=== PATIENT | female | born 1955 | race Two or more races ===

== ENCOUNTER 2022-07-20 13:46 | Inpatient (IN) | payer OTHER ==
[~2022-07-20] VITALS: Ht 157.5 cm; Wt 118.0 kg
[2022-07-20] MEDS ORDERED: LABETALOL HCL 5 MG/ML 4ML SYRINGE IV ONE (14:15)
[2022-07-20] MEDS: NITROGLYCERIN 0.4 MG SL TAB SL ONE ×2 (14:40→20:18)
[2022-07-20 14:49] LABS: Basophils # (auto) 0.1 10 ^3/uL (0-0.2); Basophils % (auto) 0.6 % (0.0-2.0); Eosinophils # (auto) 0.2 10 ^3/uL (0-0.8); Eosinophils % (auto) 1.9 % (0.0-7.0); Hematocrit 43.7 % (36.0-46.0); Hemoglobin 14.6 g/dL (12.2-16.2); Lymphocytes # (auto) 0.9 10 ^3/uL (0.4-5.4); Lymphocytes % (auto) 10.7 % (10.0-50.0); Mean Corpuscular Hemoglobin 28.4 pg (28.0-32.0); Mean Corpuscular Hgb Conc. 33.5 g/dL (32.0-36.0); Mean Corpuscular Volume 84.9 fL (80.0-100.0); Monocytes # (auto) 0.6 10 ^3/uL (0-1.3); Monocytes % (auto) 7.3 % (0.0-12.0); Neutrophils # (auto) 6.9 10 ^3/uL (1.6-8.6); Neutrophils % (auto) 79.5 % (37.0-80.0); Nucleated Red Blood Cells % 0.1 %; Red Blood Cells 5.14 10^6/uL (4.0-5.20); Red Cell Distribution Width 14.5 % (11.8-14.3); White Blood Cell 8.7 10^3/uL (4.4-10.8)
[2022-07-20 15:10] LABS: Alanine Aminotransferase 7 U/L (13-56); Albumin 2.9 g/dL (3.4-5.0); Anion Gap 8 (5-15); Aspartate Aminotransferase 15 U/L (15-37); BUN/Creatinine Ratio 10.5 (10.0-20.0); Blood Urea Nitrogen 8 mg/dL (7-18); Calcium 8.8 mg/dL (8.5-10.1); Carbon Dioxide 22 mmol/L (21-32); Chloride 107 mmol/L (98-107); GFR African American 97 mL/min; GFR Non-African American 80 mL/min; Glucose 97 mg/dL (74-106); Magnesium 2.5 mg/dL (1.6-2.6); Potassium 4.1 mmol/L (3.5-5.1); Sodium 137 mmol/L (136-145)
[2022-07-20 15:12] LABS: Alkaline Phosphatase 113 U/L (45-117); Bilirubin, Total 0.6 mg/dL (0.2-1.0); Total Protein 7.2 g/dL (6.4-8.2)
[2022-07-20] MEDS ORDERED: MORPHINE SULFATE INJ 2 MG/ml SYRG IV PRN (19:15)
[2022-07-20] MEDS ORDERED: NITROGLYCERIN 0.4 MG SL TAB SL PRN (19:15)
[2022-07-20] MEDS ORDERED: DEXTROSE (50%) 50ML SYRG IV PRN (19:45)
[2022-07-20] MEDS: InsuLIN REG 1unit/0.01ml Soln (100units/ml) SC SCH (22:37)
[2022-07-20] MEDS: ACCU-CHEK COMFORT CURVE STRIP VI SCH (22:37)
[2022-07-20] MEDS: ATORVASTATIN 20 MG TAB PO SCH (22:37)
[2022-07-20 23:13] LABS: Urine Bacteria NONE SEEN /hpf (None Seen); Urine Blood Negative /uL (Negative); Urine Mucus MANY (None Seen); Urine Specific Gravity 1.035 (1.001-1.035); Urine WBC 5 /hpf (0 - 5)
[2022-07-20 23:35] LABS: Amphetamine Screen, Urine NEGATIVE (NEGATIVE); Barbiturate Scree,Urine NEGATIVE (NEGATIVE); Benzodiazephine Screen, Urine NEGATIVE (NEGATIVE); Cocaine Screen, Urine NEGATIVE (NEGATIVE); Opiate Scree,Urine NEGATIVE (NEGATIVE); Phencyclidine Screen, Urine NEGATIVE (NEGATIVE)
[2022-07-20 23:42] LABS: Cannabinoid Screen, Urine POSITIVE (NEGATIVE)
[2022-07-20] MEDS: ONDANSETRON HCL 4 MG/2 ML VIAL IV PRN (23:57)
[2022-07-20] MEDS: ACETAMINOPHEN 325 MG TAB PO PRN (23:58)
[2022-07-21 05:25] LABS: Basophils # (auto) 0.1 10 ^3/uL (0-0.2); Basophils % (auto) 0.7 % (0.0-2.0); Eosinophils # (auto) 0.1 10 ^3/uL (0-0.8); Eosinophils % (auto) 1.1 % (0.0-7.0); Hematocrit 39.9 % (36.0-46.0); Hemoglobin 13.4 g/dL (12.2-16.2); Lymphocytes # (auto) 1.4 10 ^3/uL (0.4-5.4); Lymphocytes % (auto) 14.2 % (10.0-50.0); Mean Corpuscular Hemoglobin 28.4 pg (28.0-32.0); Mean Corpuscular Hgb Conc. 33.5 g/dL (32.0-36.0); Mean Corpuscular Volume 84.8 fL (80.0-100.0); Monocytes # (auto) 0.9 10 ^3/uL (0-1.3); Monocytes % (auto) 9.6 % (0.0-12.0); Neutrophils # (auto) 7.2 10 ^3/uL (1.6-8.6); Neutrophils % (auto) 74.4 % (37.0-80.0); Nucleated Red Blood Cells % 0.1 %; Red Blood Cells 4.71 10^6/uL (4.0-5.20); White Blood Cell 9.6 10^3/uL (4.4-10.8)
[2022-07-21 05:29] LABS: Albumin 2.8 g/dL (3.4-5.0); Calcium 8.9 mg/dL (8.5-10.1); Potassium 3.6 mmol/L (3.5-5.1)
[2022-07-21 05:34] LABS: BUN/Creatinine Ratio 12.9 (10.0-20.0); Bilirubin, Total 0.6 mg/dL (0.2-1.0); Total Protein 7.2 g/dL (6.4-8.2)
[2022-07-21] MEDS: InsuLIN REG 1unit/0.01ml Soln (100units/ml) SC SCH ×4 (07:00→21:43)
[2022-07-21] MEDS: ACCU-CHEK COMFORT CURVE STRIP VI SCH ×4 (07:00→21:39)
[2022-07-21] MEDS: ONDANSETRON HCL 4 MG/2 ML VIAL IV PRN ×3 (09:22→20:16)
[2022-07-21] MEDS ORDERED: PANTOPRAZOLE 40 MG TAB PO SCH (10:00)
[2022-07-21] MEDS ORDERED: ASPirin 81 mg TAB PO SCH (10:00)
[2022-07-21] MEDS: ERGOCALCIFEROL 50,000 UNIT(1.25MG) CAP PO SCH ×2 (10:45→11:47)
[2022-07-21 11:05] LABS: Free T4 (Free Thyroxine) 0.98 ng/dL (0.89-1.76)
[2022-07-21] MEDS ORDERED: IOHEXOL 300 MG/ML 100ML BOTTLE IJ ONE (11:21)
[2022-07-21] MEDS ORDERED: CYANOCOBALAMIN (B-12) 1000 MCG/1 ML VIAL IM ONE (11:30)
[2022-07-21] MEDS: ACETAMINOPHEN 325 MG TAB PO PRN (14:52)
[2022-07-21 16:39] VITALS: BP 185/114
[2022-07-21 17:01] VITALS: BP 185/114
[2022-07-21] MEDS: SUCRALFATE 1 GM TAB PO SCH ×2 (17:09→21:39)
[2022-07-21] MEDS: LABETALOL HCL 5 MG/ML 4ML SYRINGE IV PRN ×2 (17:10→23:18)
[2022-07-21 17:28] LABS: INR 1.04 (0.9-1.15)
[2022-07-21] MEDS: PANTOPRAZOLE 40 MG TAB PO SCH (21:39)
[2022-07-21] MEDS: ATORVASTATIN 20 MG TAB PO SCH (21:42)
[2022-07-21 22:00] VITALS: BP 159/83
[2022-07-22] MEDS ORDERED: LORazepam 2MG/ML-1ML VIAL IV PRN
[2022-07-22 05:00] VITALS: BP 135/59
[2022-07-22] MEDS: ONDANSETRON HCL 4 MG/2 ML VIAL IV PRN ×2 (05:29→18:30)
[2022-07-22 06:29] LABS: BUN/Creatinine Ratio 12.9 (10.0-20.0); Calcium 8.9 mg/dL (8.5-10.1); Potassium 3.6 mmol/L (3.5-5.1)
[2022-07-22] MEDS: SUCRALFATE 1 GM TAB PO SCH ×3 (06:46→16:32)
[2022-07-22] MEDS: ACCU-CHEK COMFORT CURVE STRIP VI SCH ×3 (06:46→16:31)
[2022-07-22] MEDS ORDERED: LEVOTHYROXINE SODIUM 25 MCG TAB PO SCH (07:00)
[2022-07-22] MEDS: InsuLIN REG 1unit/0.01ml Soln (100units/ml) SC SCH ×3 (07:00→16:31)
[2022-07-22] MEDS ORDERED: LIDOCAINE 2%HCL (LOCAL ANESTH.) INJ 10ml MDV ONE (07:32)
[2022-07-22] MEDS ORDERED: GELATIN 1 SPONGE SIZE 50 TOP ONE (07:33)
[2022-07-22 09:00] VITALS: BP 168/76
[2022-07-22] MEDS ORDERED: LISINOPRIL 10 MG TAB PO SCH (10:00)
[2022-07-22] MEDS ORDERED: LISINOPRIL 5 MG TAB PO SCH (10:00)
[2022-07-22] MEDS ORDERED: CYANOCOBALAMIN 500 MCG TAB PO SCH ×2 (10:00)
[2022-07-22] MEDS: PANTOPRAZOLE 40 MG TAB PO SCH (10:00)
[2022-07-22 10:30] VITALS: BP 148/88
[2022-07-22] MEDS ORDERED: NALOXONE HCL 0.4 MG/ML VIAL ONE (12:54)
[2022-07-22] MEDS ORDERED: fentaNYL CITRATE 100 MCG/2 ML VL ONE (12:55)
[2022-07-22] MEDS ORDERED: FLUMAZENIL 0.1 MG/ML INJ 10ML MDV IV ONE (12:55)
[2022-07-22 13:00] VITALS: BP_SYST 140; BP_DIAS 69; BP_DIAS 72
[2022-07-22] MEDS: diphenhdrAMINE HCL 50 MG/1 ML VL ONE ×2 (14:43→14:46)
[2022-07-22] MEDS: MIDAZOLAM HCL 2MG/2ML 2ml VIAL (1mg/ml) ONE ×2 (14:43→14:48)
[2022-07-22] MEDS ORDERED: ERGO1CAP23 PO (15:57)
[2022-07-22] MEDS ORDERED: LEV25T PO (15:57)
[2022-07-22] MEDS ORDERED: LISI-275 PO (15:57)
[2022-07-22] MEDS ORDERED: PANT40T PO (15:57)
[2022-07-22] MEDS ORDERED: SUCR1TAB PO (15:57)
[2022-07-22] MEDS ORDERED: CYAN500T3 PO (15:57)
[2022-07-22 16:56] VITALS: BP 133/73
[2022-07-22 18:23] VITALS: BP 148/88
[2022-07-23] MEDS ORDERED: PANTOPRAZOLE 40 MG TAB PO SCH (10:00)
== END 2022-07-22 19:05 | disposition home or self-care (01) | DRG 392 ==
LOC: ER 13:46 → TELE 19:31 → TELE-CENTR 07-21 16:34 → CENTRAL 07-21 16:47
PROVIDERS: ADMIT Nurse Practitioner Family; ATTEND Internal Medicine
PROC: 0DB68ZX Excision of Stomach, Via Natural or Artificial Opening Endoscopic, Diagnostic (ICD-10-PCS; 2022-07-22)
PROC: 0DB48ZX Excision of Esophagogastric Junction, Via Natural or Artificial Opening Endoscopic, Diagnostic (ICD-10-PCS; 2022-07-22)
PROC: 0DB98ZX Excision of Duodenum, Via Natural or Artificial Opening Endoscopic, Diagnostic (ICD-10-PCS; principal; 2022-07-22 14:10)
DX: K29.70 Gastritis, unspecified, without bleeding (principal); I16.1 Hypertensive emergency; Z68.42 Body mass index [BMI] 45.0-49.9, adult; E55.9 Vitamin D deficiency, unspecified; E03.9 Hypothyroidism, unspecified; E66.01 Morbid (severe) obesity due to excess calories; K22.70 Barrett's esophagus without dysplasia; K29.90 Gastroduodenitis, unspecified, without bleeding; K44.9 Diaphragmatic hernia without obstruction or gangrene; N28.89 Other specified disorders of kidney and ureter; Z90.710 Acquired absence of both cervix and uterus; Z90.49 Acquired absence of other specified parts of digestive tract; Z87.891 Personal history of nicotine dependence; Z82.49 Family history of ischemic heart disease and other diseases of the circulatory system; Z80.41 Family history of malignant neoplasm of ovary; Z80.7 Family history of other malignant neoplasms of lymphoid, hematopoietic and related tissues; Z90.5 Acquired absence of kidney
CPT/HCPCS: 36415; 43239; 70450; 70551; 71045; 74177; 80048; 80053; 80061; 80307; 81001; 82306; 82607; 82962; 83036; 83090; 83605; 83735; 84439; 84443; 84484; 85025; 85610; 85730; 86850; 86900; 86901; 93306; 93886; 99291; G0378; J2001; J2250; J2405; J3490

== ENCOUNTER → 2022-07-26 | Outpatient (CLI) | payer OTHER ==
[~2022-07-26] MED LIST: CYAN500T3 PO; ERGO1CAP23 PO; LEV25T PO; LISI-275 PO; PANT40T PO; SUCR1TAB PO
[2022-07-26 14:02] LABS: Calcium 8.6 mg/dL (8.5-10.1); Potassium 3.5 mmol/L (3.5-5.1)
== END | disposition home or self-care (01) ==
LOC: LAB 13:00
PROVIDERS: ATTEND Internal Medicine
DX: E03.9 Hypothyroidism, unspecified (principal)
CPT/HCPCS: 36415; 80048; 84436; 84443

== ENCOUNTER 2022-10-29 12:46 | Inpatient (IN) | payer OTHER ==
[~2022-10-29] VITALS: Ht 154.9 cm; Wt 109.6 kg
[2022-10-29 14:33] LABS: Alanine Aminotransferase 19 U/L (7-40); Alkaline Phosphatase 102 U/L (46-116); Anion Gap 8.4 (5-15); Aspartate Aminotransferase 43 U/L (13-40); BUN/Creatinine Ratio 14.2 (10.0-20.0); Bilirubin, Total 0.5 mg/dL (0.2-1.0); Blood Urea Nitrogen 19 mg/dL (9-23); Calcium 8.6 mg/dL (8.5-10.1); Carbon Dioxide 28.6 mmol/L (20-30); Chloride 95 mmol/L (98-107); Glucose 109 mg/dL (74-106); Potassium 4.8 mmol/L (3.5-5.1); Sodium 132 mmol/L (136-145); Total Protein 5.5 g/dL (5.7-8.2)
[2022-10-29 15:35] LABS: Basophils # (auto) 0.1 10 ^3/uL (0-0.2); Basophils % (auto) 1.1 % (0.0-2.0); Eosinophils # (auto) 0 10 ^3/uL (0-0.8); Eosinophils % (auto) 0.2 % (0.0-7.0); Hematocrit 39.7 % (36.0-46.0); Hemoglobin 12.7 g/dL (12.2-16.2); Lymphocytes # (auto) 0.9 10 ^3/uL (0.4-5.4); Lymphocytes % (auto) 7.3 % (10.0-50.0); Mean Corpuscular Hemoglobin 27.7 pg (28.0-32.0); Mean Corpuscular Volume 86.5 fL (80.0-100.0); Neutrophils # (auto) 9.9 10 ^3/uL (1.6-8.6); Neutrophils % (auto) 83.4 % (37.0-80.0); Nucleated Red Blood Cells % 0.2 %; Red Blood Cells 4.59 10^6/uL (4.0-5.20); Red Cell Distribution Width 17.2 % (11.8-14.3); White Blood Cell 11.9 10^3/uL (4.4-10.8)
[2022-10-29 16:07] VITALS: PULSE 100; RESP 18; O2SAT 97
[2022-10-29] MEDS ORDERED: SODIUM CHLORIDE 0.9% 500 ML IVB ONE (16:45)
[2022-10-29] MEDS ORDERED: ONDANSETRON HCL 4 MG/2 ML VIAL IV ONE (16:45)
[2022-10-29] MEDS ORDERED: SODIUM CHLORIDE 0.9% 1,000 ML IV ONE (16:45)
[2022-10-29 17:06] LABS: Magnesium 2.3 mg/dL (1.6-2.6)
[2022-10-29] MEDS ORDERED: SPIRONOLACTONE 25 MG TAB PO ONE (18:00)
[2022-10-29] MEDS ORDERED: FUROSEMIDE 20 MG/2 ML VIAL IV ONE (18:00)
[2022-10-29] MEDS ORDERED: LEVOTHYROXINE SODIUM 25 MCG TAB PO ONE (18:45)
[2022-10-29 19:35] VITALS: PULSE 87; RESP 18; O2SAT 100
[2022-10-29] MEDS ORDERED: ACETAMINOPHEN 325 MG TAB PO PRN (20:15)
[2022-10-29] MEDS ORDERED: cefTRIAXone 1GM/50ML D5W 50 ML IV ONE (20:15)
[2022-10-29] MEDS ORDERED: DOCUSATE SOD 100 MG CAP PO PRN (20:15)
[2022-10-29] MEDS ORDERED: MORPHINE SULFATE INJ 2 MG/ml SYRG IV PRN (21:30)
[2022-10-29] MEDS ORDERED: NITROGLYCERIN 0.4 MG SL TAB SL PRN (21:30)
[2022-10-29] MEDS: CARVEDILOL 3.125 MG TAB PO SCH (22:00)
[2022-10-29] MEDS: SODIUM CHLOR 0.9% PF (SALINE LOCK) 10ML VIAL/SYR IV SCH (22:02)
[2022-10-29] MEDS: FAMOTIDINE (10MG/ML) 2ML VL IV SCH (22:08)
[2022-10-30 05:34] LABS: Alanine Aminotransferase 19 U/L (7-40); Albumin 2.7 g/dL (3.2-4.8); Alkaline Phosphatase 96 U/L (46-116); Anion Gap 3.9 (5-15); Aspartate Aminotransferase 47 U/L (13-40); BUN/Creatinine Ratio 14.4 (10.0-20.0); Bilirubin, Total 0.7 mg/dL (0.2-1.0); Blood Urea Nitrogen 20 mg/dL (9-23); Calcium 8.2 mg/dL (8.7-10.4); Carbon Dioxide 33.1 mmol/L (20-30); Chloride 98 mmol/L (98-107); Glucose 76 mg/dL (74-106); Potassium 4.3 mmol/L (3.5-5.1); Sodium 135 mmol/L (136-145)
[2022-10-30 05:35] LABS: Basophils # (auto) 0.1 10 ^3/uL (0-0.2); Basophils % (auto) 0.7 % (0.0-2.0); Eosinophils # (auto) 0.1 10 ^3/uL (0-0.8); Eosinophils % (auto) 0.9 % (0.0-7.0); Hematocrit 34.8 % (36.0-46.0); Hemoglobin 11.4 g/dL (12.2-16.2); Lymphocytes # (auto) 0.9 10 ^3/uL (0.4-5.4); Mean Corpuscular Hgb Conc. 32.8 g/dL (32.0-36.0); Mean Corpuscular Volume 85.2 fL (80.0-100.0); Monocytes # (auto) 1.2 10 ^3/uL (0-1.3); Monocytes % (auto) 9.5 % (0.0-12.0); Neutrophils # (auto) 10.1 10 ^3/uL (1.6-8.6); Neutrophils % (auto) 81.9 % (37.0-80.0); Nucleated Red Blood Cells % 0.4 %; Red Blood Cells 4.09 10^6/uL (4.0-5.20); White Blood Cell 12.4 10^3/uL (4.4-10.8)
[2022-10-30 05:55] LABS: Urine WBC None Seen /hpf (0 - 5)
[2022-10-30 06:21] LABS: Urine Bacteria NONE SEEN /hpf (None Seen); Urine Blood Negative /uL (Negative); Urine Clarity Clear (Clear); Urine Color Colorless (Yellow); Urine Protein, UAD Negative (Negative); Urine Specific Gravity 1.031 (1.001-1.035); Urine Urobilinogen Normal (Negative)
[2022-10-30] MEDS: SODIUM CHLOR 0.9% PF (SALINE LOCK) 10ML VIAL/SYR IV SCH ×3 (06:24→22:11)
[2022-10-30] MEDS: LEVOTHYROXINE SODIUM 25 MCG TAB PO SCH (06:56)
[2022-10-30] MEDS ORDERED: FUR20T PO (07:19)
[2022-10-30] MEDS ORDERED: TRAM50TA2 PO (07:19)
[2022-10-30 07:29] VITALS: PULSE 82; RESP 18
[2022-10-30 08:00] VITALS: BP 117/56; PULSE 86; PULSE 89; RESP 20; RESP 28; TEMP 98.7; O2SAT 86; O2SAT 98
[2022-10-30 08:07] LABS: Triglycerides 80 mg/dL (< 150)
[2022-10-30 08:08] LABS: LDL Cholesterol 55 mg/dL (< 100)
[2022-10-30 08:09] LABS: Cholesterol 105 mg/dL (< 200); HDL Cholesterol 30 mg/dL (40-59)
[2022-10-30] MEDS: cefTRIAXone 1GM/50ML D5W 50 ML IV SCH (09:00)
[2022-10-30] MEDS ORDERED: FUROSEMIDE 40 MG/4 ML VIAL IV SCH (10:00)
[2022-10-30] MEDS: FAMOTIDINE (10MG/ML) 2ML VL IV SCH ×2 (10:45→21:33)
[2022-10-30] MEDS: ASPirin 81 mg TAB PO SCH (10:45)
[2022-10-30] MEDS: CARVEDILOL 3.125 MG TAB PO SCH ×2 (10:45→21:33)
[2022-10-30] MEDS ORDERED: SODIUM CHLORIDE 0.9% 1,000 ML IV SCH (12:15)
[2022-10-30] MEDS ORDERED: ASPirin 81 mg TAB PO ONE (15:15)
[2022-10-30] MEDS ORDERED: CLOPIDOGREL 300 MG TAB PO ONE (15:15)
[2022-10-30] MEDS: SODIUM CHLORIDE 0.9% 1,000 ML IV SCH ×2 (15:15→18:37)
[2022-10-30 16:48] VITALS: BP 122/72; PULSE 86; RESP 19; TEMP 98.5; O2SAT 92
[2022-10-30 20:00] VITALS: PULSE 78; RESP 16
[2022-10-30] MEDS: ATORVASTATIN 20 MG TAB PO SCH (21:33)
[2022-10-30 22:00] VITALS: BP 123/70; PULSE 81; RESP 18; TEMP 97.6; O2SAT 93
[2022-10-31] VITALS (7 sets, daily range): BP systolic 125–159; BP diastolic 68–79; PULSE 63–88; RESP 16–18; TEMP 97.3–98; O2SAT 96–100
[2022-10-31] MEDS: SODIUM CHLORIDE 0.9% 1,000 ML IV SCH ×2 (01:35→22:08)
[2022-10-31] MEDS: SODIUM CHLOR 0.9% PF (SALINE LOCK) 10ML VIAL/SYR IV SCH ×3 (06:00→21:59)
[2022-10-31] MEDS: LEVOTHYROXINE SODIUM 25 MCG TAB PO SCH (06:40)
[2022-10-31] MEDS: cefTRIAXone 1GM/50ML D5W 50 ML IV SCH (10:18)
[2022-10-31] MEDS: ASPirin 81 mg TAB PO SCH (10:18)
[2022-10-31] MEDS: FAMOTIDINE (10MG/ML) 2ML VL IV SCH ×2 (10:18→21:58)
[2022-10-31] MEDS: CARVEDILOL 3.125 MG TAB PO SCH ×2 (10:18→21:59)
[2022-10-31] MEDS: CLOPIDOGREL BISULFATE 75 MG TAB PO SCH (10:21)
[2022-10-31 11:06] LABS: Hepatitis B Surface Antibody Negative (Negative)
[2022-10-31 11:08] LABS: Free T3 1.85 pg/mL (2.3-4.2); Free T4 (Free Thyroxine) 0.83 ng/dL (0.89-1.76)
[2022-10-31 11:17] LABS: Hepatitis B Surface Antigen Negative (Negative)
[2022-10-31 11:40] LABS: Hepatitis C Antibody Negative (Negative)
[2022-10-31 11:45] LABS: Hepatitis A Total Antibody Negative (Negative)
[2022-10-31] MEDS: HYDROcodone-ACET 5/325MG TAB PO PRN ×2 (14:17→21:58)
[2022-10-31 18:42] LABS: Basophils # (auto) 0.1 10 ^3/uL (0-0.2); Basophils % (auto) 0.6 % (0.0-2.0); Eosinophils # (auto) 0.3 10 ^3/uL (0-0.8); Hematocrit 35.1 % (36.0-46.0); Hemoglobin 11.2 g/dL (12.2-16.2); Lymphocytes # (auto) 0.5 10 ^3/uL (0.4-5.4); Lymphocytes % (auto) 4.3 % (10.0-50.0); Mean Corpuscular Hemoglobin 27.7 pg (28.0-32.0); Mean Corpuscular Volume 86.6 fL (80.0-100.0); Monocytes # (auto) 0.9 10 ^3/uL (0-1.3); Monocytes % (auto) 7.3 % (0.0-12.0); Neutrophils # (auto) 10.6 10 ^3/uL (1.6-8.6); Neutrophils % (auto) 85.8 % (37.0-80.0); Nucleated Red Blood Cells % 0.1 %; Red Blood Cells 4.06 10^6/uL (4.0-5.20); Red Cell Distribution Width 17.4 % (11.8-14.3); White Blood Cell 12.4 10^3/uL (4.4-10.8)
[2022-10-31 18:49] LABS: Chloride 101 mmol/L (98-107); Potassium 4.3 mmol/L (3.5-5.1); Sodium 139 mmol/L (136-145)
[2022-10-31 18:50] LABS: Anion Gap 6.3 (5-15); Calcium 7.7 mg/dL (8.5-10.1); Carbon Dioxide 31.7 mmol/L (20-30)
[2022-10-31 18:55] LABS: BUN/Creatinine Ratio 17.8 (10.0-20.0); Blood Urea Nitrogen 18 mg/dL (9-23); Glucose 73 mg/dL (74-106)
[2022-10-31 18:56] LABS: Magnesium 1.9 mg/dL (1.6-2.6)
[2022-10-31] MEDS: ATORVASTATIN 20 MG TAB PO SCH (21:58)
[2022-11-01] VITALS (10 sets, daily range): BP systolic 113–141; BP diastolic 53–71; PULSE 72–84; RESP 14–23; TEMP 98.3–98.7; O2SAT 90–100
[2022-11-01] MEDS: LEVOTHYROXINE SODIUM 25 MCG TAB PO SCH (06:16)
[2022-11-01] MEDS: SODIUM CHLOR 0.9% PF (SALINE LOCK) 10ML VIAL/SYR IV SCH ×3 (06:18→22:49)
[2022-11-01] MEDS ORDERED: FUROSEMIDE 40 MG/4 ML VIAL IV ONE (07:30)
[2022-11-01] MEDS: cefTRIAXone 1GM/50ML D5W 50 ML IV SCH (09:00)
[2022-11-01] MEDS ORDERED: LISINOPRIL 5 MG TAB PO SCH (10:00)
[2022-11-01] MEDS: FAMOTIDINE (10MG/ML) 2ML VL IV SCH ×2 (10:00→22:52)
[2022-11-01] MEDS: CLOPIDOGREL BISULFATE 75 MG TAB PO SCH (10:00)
[2022-11-01] MEDS: ASPirin 81 mg TAB PO SCH (10:00)
[2022-11-01] MEDS: METOPROLOL TARTRATE 25 MG TAB PO SCH ×2 (10:00→22:50)
[2022-11-01] MEDS ORDERED: LIDOCAINE 2%HCL (LOCAL ANESTH.) INJ 20ML MDV ONE (10:16)
[2022-11-01] MEDS ORDERED: IODIXANOL 320MG/ML 100ML BTL IV ONE (10:16)
[2022-11-01] MEDS ORDERED: ANGIOMAX 250 MG VIAL IV ONE (10:32)
[2022-11-01] MEDS ORDERED: MIDAZOLAM HCL 2MG/2ML 2ml VIAL (1mg/ml) ONE (10:32)
[2022-11-01] MEDS ORDERED: SODIUM CHL 0.9% 0 ML ONE (10:32)
[2022-11-01] MEDS ORDERED: HEPARIN SODIUM (PORCINE) 5000 UNITS/ML 1ML VIAL ONE (10:32)
[2022-11-01] MEDS ORDERED: fentaNYL CITRATE 100 MCG/2 ML VL ONE (10:32)
[2022-11-01] MEDS ORDERED: VERAPAMIL 2.5MG/ML INJ 2ML VIAL IV ONE (10:33)
[2022-11-01 15:13] LABS: INR 1.15 (0.9-1.15); Partial Thromboplastin Time 39.2 SEC (24.5-34.5)
[2022-11-01] MEDS: SODIUM CHLORIDE 0.9% 1,000 ML IV SCH (17:15)
[2022-11-01] MEDS: FUROSEMIDE 40 MG/4 ML VIAL IV SCH (18:07)
[2022-11-01] MEDS: ATORVASTATIN 20 MG TAB PO SCH (22:49)
[2022-11-01] MEDS: HYDROcodone-ACET 5/325MG TAB PO PRN (22:50)
[2022-11-02] VITALS (7 sets, daily range): BP systolic 94–130; BP diastolic 48–61; PULSE 70–86; RESP 16–18; TEMP 36.8; O2SAT 94–100
[2022-11-02] MEDS: LEVOTHYROXINE SODIUM 100 MCG TAB PO SCH (06:31)
[2022-11-02] MEDS: SODIUM CHLOR 0.9% PF (SALINE LOCK) 10ML VIAL/SYR IV SCH ×3 (06:31→22:00)
[2022-11-02] MEDS: FUROSEMIDE 40 MG/4 ML VIAL IV SCH ×2 (06:33→17:52)
[2022-11-02 06:38] LABS: Basophils # (auto) 0.1 10 ^3/uL (0-0.2); Basophils % (auto) 0.7 % (0.0-2.0); Eosinophils # (auto) 1.1 10 ^3/uL (0-0.8); Eosinophils % (auto) 7.7 % (0.0-7.0); Hemoglobin 12.5 g/dL (12.2-16.2); Lymphocytes # (auto) 0.9 10 ^3/uL (0.4-5.4); Lymphocytes % (auto) 6.6 % (10.0-50.0); Mean Corpuscular Hemoglobin 28.1 pg (28.0-32.0); Mean Corpuscular Volume 87.8 fL (80.0-100.0); Monocytes # (auto) 1.9 10 ^3/uL (0-1.3); Monocytes % (auto) 13.7 % (0.0-12.0); Neutrophils % (auto) 71.3 % (37.0-80.0); Nucleated Red Blood Cells % 0.1 %; Red Blood Cells 4.44 10^6/uL (4.0-5.20); Red Cell Distribution Width 17.7 % (11.8-14.3)
[2022-11-02 06:58] LABS: Alanine Aminotransferase 13 U/L (7-40); Albumin 2.7 g/dL (3.2-4.8); Alkaline Phosphatase 100 U/L (46-116); Anion Gap 7.8 (5-15); Aspartate Aminotransferase 28 U/L (13-40); BUN/Creatinine Ratio 9.9 (10.0-20.0); Bilirubin, Total 0.5 mg/dL (0.2-1.0); Blood Urea Nitrogen 9 mg/dL (9-23); Calcium 8.1 mg/dL (8.5-10.1); Carbon Dioxide 26.2 mmol/L (20-30); Chloride 102 mmol/L (98-107); Glucose 89 mg/dL (74-106); Potassium 4.2 mmol/L (3.5-5.1); Sodium 136 mmol/L (136-145); Total Protein 5.6 g/dL (5.7-8.2)
[2022-11-02] MEDS: ONDANSETRON HCL 4 MG/2 ML VIAL IV PRN (07:55)
[2022-11-02] MEDS: SODIUM CHLORIDE 0.9% 1,000 ML IV SCH (09:43)
[2022-11-02] MEDS: cefTRIAXone 1GM/50ML D5W 50 ML IV SCH (09:43)
[2022-11-02] MEDS: CLOPIDOGREL BISULFATE 75 MG TAB PO SCH (09:43)
[2022-11-02] MEDS: ASPirin 81 mg TAB PO SCH (09:43)
[2022-11-02] MEDS: FAMOTIDINE (10MG/ML) 2ML VL IV SCH ×2 (09:43→21:22)
[2022-11-02] MEDS: METOPROLOL TARTRATE 25 MG TAB PO SCH ×2 (09:56→21:23)
[2022-11-02] MEDS: amLODIPine BESYLATE 5 MG TAB PO SCH (09:56)
[2022-11-02] MEDS: HYDROcodone-ACET 5/325MG TAB PO PRN (16:53)
[2022-11-02] MEDS: ATORVASTATIN 20 MG TAB PO SCH (21:22)
[2022-11-03] MEDS: SODIUM CHLORIDE 0.9% 1,000 ML IV SCH (02:35)
[2022-11-03 05:00] VITALS: BP 120/60; PULSE 77; RESP 19; TEMP 98.3; O2SAT 100
[2022-11-03] MEDS: FUROSEMIDE 40 MG/4 ML VIAL IV SCH ×2 (05:40→17:27)
[2022-11-03] MEDS: SODIUM CHLOR 0.9% PF (SALINE LOCK) 10ML VIAL/SYR IV SCH ×3 (05:40→21:18)
[2022-11-03] MEDS: LEVOTHYROXINE SODIUM 100 MCG TAB PO SCH (06:02)
[2022-11-03 08:00] VITALS: BP 125/56; PULSE 70; PULSE 71; RESP 18; TEMP 36.8; O2SAT 100
[2022-11-03 09:00] VITALS: BP 129/64; PULSE 76; RESP 20; TEMP 98.2; O2SAT 92
[2022-11-03] MEDS: cefTRIAXone 1GM/50ML D5W 50 ML IV SCH (09:24)
[2022-11-03] MEDS: FAMOTIDINE (10MG/ML) 2ML VL IV SCH ×2 (09:24→21:17)
[2022-11-03] MEDS: METOPROLOL TARTRATE 25 MG TAB PO SCH ×2 (09:25→21:21)
[2022-11-03] MEDS: ASPirin 81 mg TAB PO SCH (09:25)
[2022-11-03] MEDS: CLOPIDOGREL BISULFATE 75 MG TAB PO SCH (09:26)
[2022-11-03] MEDS: amLODIPine BESYLATE 5 MG TAB PO SCH (09:26)
[2022-11-03 13:00] VITALS: BP 102/63; PULSE 73; RESP 21; TEMP 98; O2SAT 93
[2022-11-03 13:53] LABS: Basophils # (auto) 0.1 10 ^3/uL (0-0.2); Basophils % (auto) 0.8 % (0.0-2.0); Eosinophils # (auto) 0.7 10 ^3/uL (0-0.8); Eosinophils % (auto) 7.7 % (0.0-7.0); Hematocrit 35.1 % (36.0-46.0); Hemoglobin 11.3 g/dL (12.2-16.2); Lymphocytes # (auto) 0.8 10 ^3/uL (0.4-5.4); Lymphocytes % (auto) 7.8 % (10.0-50.0); Mean Corpuscular Hemoglobin 27.5 pg (28.0-32.0); Monocytes # (auto) 1.2 10 ^3/uL (0-1.3); Monocytes % (auto) 12.3 % (0.0-12.0); Neutrophils # (auto) 6.9 10 ^3/uL (1.6-8.6); Neutrophils % (auto) 71.4 % (37.0-80.0); Nucleated Red Blood Cells % 0.1 %; Red Blood Cells 4.09 10^6/uL (4.0-5.20); Red Cell Distribution Width 17.1 % (11.8-14.3); White Blood Cell 9.7 10^3/uL (4.4-10.8)
[2022-11-03 15:22] LABS: Alanine Aminotransferase 16 U/L (7-40); Albumin 2.7 g/dL (3.2-4.8); Alkaline Phosphatase 105 U/L (46-116); Anion Gap 2.7 (5-15); Aspartate Aminotransferase 18 U/L (13-40); BUN/Creatinine Ratio 14.3 (10.0-20.0); Bilirubin, Total 0.3 mg/dL (0.2-1.0); Blood Urea Nitrogen 11 mg/dL (9-23); Calcium 7.6 mg/dL (8.7-10.4); Carbon Dioxide 32.3 mmol/L (20-30); Chloride 101 mmol/L (98-107); Glucose 94 mg/dL (74-106); Magnesium 1.7 mg/dL (1.6-2.6); Potassium 3.3 mmol/L (3.5-5.1); Sodium 136 mmol/L (136-145)
[2022-11-03 15:23] LABS: Total Protein 5.1 g/dL (5.7-8.2)
[2022-11-03] MEDS: ONDANSETRON HCL 4 MG/2 ML VIAL IV PRN (19:42)
[2022-11-03 19:49] LABS: Hepatitis B Core Total AB Negative (Negative)
[2022-11-03 20:00] VITALS: BP 125/56; PULSE 71; PULSE 85; RESP 18; TEMP 36.8; O2SAT 100
[2022-11-03] MEDS: HYDROcodone-ACET 5/325MG TAB PO PRN (20:11)
[2022-11-03] MEDS: ATORVASTATIN 20 MG TAB PO SCH (21:17)
[2022-11-03 21:48] VITALS: BP 118/59; PULSE 87; RESP 20; TEMP 98.3; O2SAT 97
[2022-11-04] VITALS (8 sets, daily range): BP systolic 116–151; BP diastolic 65–75; PULSE 80–90; RESP 19–21; TEMP 97.6–98; O2SAT 93–100
[2022-11-04] MEDS: SODIUM CHLORIDE 0.9% 1,000 ML IV SCH (04:53)
[2022-11-04] MEDS: FUROSEMIDE 40 MG/4 ML VIAL IV SCH ×2 (06:32→17:41)
[2022-11-04] MEDS: LEVOTHYROXINE SODIUM 100 MCG TAB PO SCH (06:32)
[2022-11-04] MEDS: SODIUM CHLOR 0.9% PF (SALINE LOCK) 10ML VIAL/SYR IV SCH ×3 (06:33→21:53)
[2022-11-04] MEDS: FAMOTIDINE (10MG/ML) 2ML VL IV SCH ×2 (08:43→21:47)
[2022-11-04] MEDS: ONDANSETRON HCL 4 MG/2 ML VIAL IV PRN ×2 (08:43→16:34)
[2022-11-04] MEDS: ASPirin 81 mg TAB PO SCH (08:47)
[2022-11-04] MEDS: CLOPIDOGREL BISULFATE 75 MG TAB PO SCH (08:48)
[2022-11-04] MEDS: amLODIPine BESYLATE 5 MG TAB PO SCH (08:48)
[2022-11-04] MEDS: METOPROLOL TARTRATE 25 MG TAB PO SCH ×2 (08:49→21:48)
[2022-11-04] MEDS: cefTRIAXone 1GM/50ML D5W 50 ML IV SCH (08:49)
[2022-11-04] MEDS ORDERED: POTASSIUM EFFERVESENT TAB 25 MEQ PO ONE (10:15)
[2022-11-04] MEDS: HYDROcodone-ACET 5/325MG TAB PO PRN ×2 (11:00→20:57)
[2022-11-04] MEDS: CEPHALEXIN 250 MG CAP PO SCH ×2 (13:03→17:40)
[2022-11-04] MEDS: ATORVASTATIN 20 MG TAB PO SCH (21:47)
[2022-11-05] MEDS: CEPHALEXIN 250 MG CAP PO SCH ×3 (01:15→14:16)
[2022-11-05] MEDS: SODIUM CHLOR 0.9% PF (SALINE LOCK) 10ML VIAL/SYR IV SCH ×2 (06:00→14:16)
[2022-11-05] MEDS: FUROSEMIDE 40 MG/4 ML VIAL IV SCH (06:39)
[2022-11-05] MEDS: LEVOTHYROXINE SODIUM 100 MCG TAB PO SCH (06:40)
[2022-11-05 08:00] VITALS: BP 125/56; PULSE 71; RESP 18; TEMP 36.8; O2SAT 82
[2022-11-05] MEDS: ONDANSETRON HCL 4 MG/2 ML VIAL IV PRN (08:51)
[2022-11-05] MEDS: ASPirin 81 mg TAB PO SCH (10:19)
[2022-11-05] MEDS: METOPROLOL TARTRATE 25 MG TAB PO SCH (10:19)
[2022-11-05] MEDS: CLOPIDOGREL BISULFATE 75 MG TAB PO SCH (10:19)
[2022-11-05] MEDS: amLODIPine BESYLATE 5 MG TAB PO SCH (10:19)
[2022-11-05] MEDS: FAMOTIDINE (10MG/ML) 2ML VL IV SCH (10:19)
[2022-11-05 12:00] VITALS: BP 114/71; PULSE 74; RESP 20; TEMP 98.1; O2SAT 93
[2022-11-05] MEDS: HYDROcodone-ACET 5/325MG TAB PO PRN (14:16)
[2022-11-05] MEDS ORDERED: CEPH500C PO (15:11)
[2022-11-05] MEDS ORDERED: CLOP75TA70 PO (15:11)
[2022-11-05] MEDS ORDERED: ATOR20TA50 PO (15:11)
[2022-11-05] MEDS ORDERED: FAMO20TA10 PO (15:11)
[2022-11-05] MEDS ORDERED: LEV100T PO (15:11)
[2022-11-05] MEDS ORDERED: FURO1TAB31 PO (15:11)
[2022-11-05] MEDS ORDERED: AML5T PO (15:11)
[2022-11-05] MEDS ORDERED: METO25TA36 PO (15:11)
[2022-11-05] MEDS ORDERED: LEVO100T69 PO (15:11)
[2022-11-05 16:00] VITALS: BP 120/70; PULSE 77; TEMP 36.6
[2022-11-05 17:30] VITALS: BP 113/66; PULSE 78; RESP 20; TEMP 97.4; O2SAT 93
== END 2022-11-05 17:45 | disposition home or self-care (01) | DRG 280 ==
LOC: ER 12:46 → TELE 21:19 → TELE-WESTW 10-30 06:27 → TELE-E-ADS 10-30 20:50
PROVIDERS: ADMIT Internal Medicine Geriatric Medicine; ATTEND Internal Medicine
PROC: 05HA33Z Insertion of Infusion Device into Left Brachial Vein, Percutaneous Approach (ICD-10-PCS; 2022-10-30)
PROC: B54NZZA Ultrasonography of Left Upper Extremity Veins, Guidance (ICD-10-PCS; 2022-10-30)
PROC: 4A023N7 Measurement of Cardiac Sampling and Pressure, Left Heart, Percutaneous Approach (ICD-10-PCS; principal; 2022-11-01)
PROC: B211YZZ Fluoroscopy of Multiple Coronary Arteries using Other Contrast (ICD-10-PCS; 2022-11-01)
DX: I21.4 Non-ST elevation (NSTEMI) myocardial infarction (principal); I50.33 Acute on chronic diastolic (congestive) heart failure; I13.0 Hypertensive heart and chronic kidney disease with heart failure and stage 1 through stage 4 chronic kidney disease, or unspecified chronic kidney disease; N17.9 Acute kidney failure, unspecified; Z68.42 Body mass index [BMI] 45.0-49.9, adult; E86.0 Dehydration; D72.829 Elevated white blood cell count, unspecified; I95.9 Hypotension, unspecified; N18.30 Chronic kidney disease, stage 3 unspecified; E03.9 Hypothyroidism, unspecified; E66.01 Morbid (severe) obesity due to excess calories; E86.1 Hypovolemia; I27.20 Pulmonary hypertension, unspecified; I25.10 Atherosclerotic heart disease of native coronary artery without angina pectoris; Z85.528 Personal history of other malignant neoplasm of kidney; Z90.5 Acquired absence of kidney; Z87.891 Personal history of nicotine dependence; Z90.710 Acquired absence of both cervix and uterus; Z79.82 Long term (current) use of aspirin; Z79.02 Long term (current) use of antithrombotics/antiplatelets; Z90.49 Acquired absence of other specified parts of digestive tract
CPT/HCPCS: 36415; 71045; 73120; 74176; 76705; 80048; 80053; 80061; 81001; 83605; 83690; 83735; 83880; 84439; 84443; 84481; 84484; 85025; 85610; 85730; 86704; 86706; 86708; 86803; 87040; 87077; 87081; 87186; 87205; 87340; 93005; 93306; 93458; 96365; 96375; 97110; 97116; 97163; 97530; 99152; G0378; J0696; J2250; J2405; J3490; Q9967

== ENCOUNTER → 2022-11-08 | Outpatient (CLI) | payer OTHER ==
[~2022-11-08] MED LIST changes: +AML5T PO; +ATOR20TA50 PO; +CEPH500C PO; +CLOP75TA70 PO; +FAMO20TA10 PO; +FURO1TAB31 PO; +LEV100T PO; -LEV25T PO; +LEVO100T69 PO; -LISI-275 PO; +METO25TA36 PO; -PANT40T PO; +TRAM50TA2 PO
[2022-11-08 12:44] LABS: Base Excess 8.7 mmol/L (-2.0-2.0)
[2022-11-08 13:11] LABS: Base Excess 7.5 mmol/L (-2.0-2.0)
== END | disposition home or self-care (01) ==
LOC: RT 12:12
PROVIDERS: ATTEND Internal Medicine
DX: N28.89 Other specified disorders of kidney and ureter (principal); G47.30 Sleep apnea, unspecified
CPT/HCPCS: 36600; 82805

== ENCOUNTER 2022-11-16 15:42 | Emergency (ER) | payer OTHER ==
[~2022-11-16] VITALS: Ht 157.5 cm; Wt 152.6 kg
[~2022-11-16 15:42] MED LIST changes: -GASTROGRAFIN 120 ML SOL ONE
[2022-11-16] MEDS ORDERED: SODIUM CHLORIDE 0.9% 1,000 ML IV ONE (16:00)
[2022-11-16 17:00] LABS: Basophils # (auto) 0.2 10 ^3/uL (0-0.2); Basophils % (auto) 2.5 % (0.0-2.0); Eosinophils # (auto) 0.4 10 ^3/uL (0-0.8); Eosinophils % (auto) 4.8 % (0.0-7.0); Hematocrit 41.9 % (36.0-46.0); Hemoglobin 12.9 g/dL (12.2-16.2); Lymphocytes # (auto) 1.1 10 ^3/uL (0.4-5.4); Lymphocytes % (auto) 14.3 % (10.0-50.0); Mean Corpuscular Hemoglobin 27.6 pg (28.0-32.0); Mean Corpuscular Hgb Conc. 30.9 g/dL (32.0-36.0); Mean Corpuscular Volume 89.4 fL (80.0-100.0); Monocytes # (auto) 0.9 10 ^3/uL (0-1.3); Monocytes % (auto) 11.5 % (0.0-12.0); Neutrophils # (auto) 5.1 10 ^3/uL (1.6-8.6); Neutrophils % (auto) 66.9 % (37.0-80.0); Nucleated Red Blood Cells % 0.3 %; Red Blood Cells 4.69 10^6/uL (4.0-5.20); Red Cell Distribution Width 19.1 % (11.8-14.3); White Blood Cell 7.7 10^3/uL (4.4-10.8)
[2022-11-16 17:15] LABS: INR 1.07 (0.9-1.15); Partial Thromboplastin Time 24.7 SEC (24.5-34.5); Prothrombin Time 11.2 sec (9.3-11.8)
[2022-11-16] MEDS ORDERED: metroNIDAZOLE 500MG/100ML 100 ML IV ONE (17:15)
[2022-11-16] MEDS ORDERED: PIPERACILLIN-TAZOB 3.375GM 100 ML IV ONE (17:15)
[2022-11-16 17:24] LABS: Alanine Aminotransferase 14 U/L (7-40); Albumin 3.4 g/dL (3.2-4.8); Alkaline Phosphatase 121 U/L (46-116); Anion Gap 7 (5-15); Aspartate Aminotransferase 25 U/L (13-40); BUN/Creatinine Ratio 8.8 (10.0-20.0); Blood Urea Nitrogen 12 mg/dL (9-23); Calcium 8.2 mg/dL (8.7-10.4); Carbon Dioxide 34 mmol/L (20-30); Chloride 97 mmol/L (98-107); Glucose 81 mg/dL (74-106); Potassium 3.3 mmol/L (3.5-5.1); Sodium 138 mmol/L (136-145)
[2022-11-16 17:25] LABS: Bilirubin, Total 0.6 mg/dL (0.2-1.0); Total Protein 6.1 g/dL (5.7-8.2)
[2022-11-16] MEDS ORDERED: GASTROGRAFIN 120 ML SOL ONE (17:37)
[2022-11-16 21:15] VITALS: PULSE 63; RESP 20; O2SAT 20
[2022-11-17 07:55] VITALS: PULSE 20; RESP 20; O2SAT 94
[2022-11-17] MEDS ORDERED: PIPERACILLIN-TAZOB 3.375GM 100 ML IV ONE (09:00)
[2022-11-17] MEDS ORDERED: metroNIDAZOLE 500MG/100ML 100 ML IV ONE (09:00)
[2022-11-17 12:24] VITALS: BP 121/55; PULSE 68; RESP 12; TEMP 98.1; O2SAT 99
== END 2022-11-17 13:20 | disposition short-term general hospital (02) ==
LOC: ER 15:42
DX: K57.20 Diverticulitis of large intestine with perforation and abscess without bleeding (principal); I10 Essential (primary) hypertension; F15.90 Other stimulant use, unspecified, uncomplicated; Z98.890 Other specified postprocedural states; Z87.891 Personal history of nicotine dependence; Z79.899 Other long term (current) drug therapy
CPT/HCPCS: 36415; 74220; 80053; 83605; 83880; 84484; 85025; 85610; 85730; 87040; 96365; 96366; 96367; 96368; 99291; J2543; J3490; Q9963; 87077; 87186

== ENCOUNTER → 2022-11-16 | Outpatient (CLI) | payer OTHER | END | disposition home or self-care (01) | LOC: LAB 13:12 | PROVIDERS: ATTEND Internal Medicine | DX: T81.49XA Infection following a procedure, other surgical site, initial encounter (principal); X58.XXXA Exposure to other specified factors, initial encounter | CPT/HCPCS: 87205 ==

== ENCOUNTER → 2022-11-16 | Outpatient (CLI) | payer OTHER ==
[~2022-11-16] MED LIST changes: +GASTROGRAFIN 120 ML SOL ONE
[2022-11-16 12:40] LABS: Basophils # (auto) 0 10 ^3/uL (0-0.2); Basophils % (auto) 0.3 % (0.0-2.0); Eosinophils # (auto) 0.5 10 ^3/uL (0-0.8); Hematocrit 40.6 % (36.0-46.0); Hemoglobin 13.3 g/dL (12.2-16.2); Lymphocytes # (auto) 1.1 10 ^3/uL (0.4-5.4); Lymphocytes % (auto) 14.3 % (10.0-50.0); Mean Corpuscular Hemoglobin 27.7 pg (28.0-32.0); Mean Corpuscular Hgb Conc. 32.8 g/dL (32.0-36.0); Mean Corpuscular Volume 84.6 fL (80.0-100.0); Monocytes # (auto) 0.9 10 ^3/uL (0-1.3); Monocytes % (auto) 12.3 % (0.0-12.0); Neutrophils % (auto) 66.1 % (37.0-80.0); Nucleated Red Blood Cells % 0.2 %; Red Blood Cells 4.81 10^6/uL (4.0-5.20); Red Cell Distribution Width 18.5 % (11.8-14.3); White Blood Cell 7.5 10^3/uL (4.4-10.8)
[2022-11-16 13:02] LABS: Alanine Aminotransferase 10 U/L (7-40); Albumin 3.5 g/dL (3.2-4.8); Alkaline Phosphatase 121 U/L (46-116); Anion Gap 4 (5-15); Aspartate Aminotransferase 16 U/L (13-40); BUN/Creatinine Ratio 7.7 (10.0-20.0); Bilirubin, Total 0.5 mg/dL (0.2-1.0); Blood Urea Nitrogen 10 mg/dL (9-23); Calcium 8.5 mg/dL (8.7-10.4); Carbon Dioxide 37 mmol/L (20-30); Chloride 97 mmol/L (98-107); Glucose 100 mg/dL (74-106); Potassium 3.2 mmol/L (3.5-5.1); Sodium 138 mmol/L (136-145); Total Protein 6.4 g/dL (5.7-8.2)
== END | disposition home or self-care (01) ==
LOC: LAB 12:23
PROVIDERS: ATTEND Internal Medicine
DX: D49.512 Neoplasm of unspecified behavior of left kidney (principal); R05.9 Cough, unspecified; T81.49XA Infection following a procedure, other surgical site, initial encounter
CPT/HCPCS: 36415; 80053; 85025

== ENCOUNTER 2022-11-30 10:58 | Inpatient (IN) | payer OTHER ==
[~2022-11-30] VITALS: Ht 157.5 cm; Wt 112.6 kg
[2022-11-30 12:00] LABS: Basophils # (auto) 0.1 10 ^3/uL (0-0.2); Basophils % (auto) 0.8 % (0.0-2.0); Eosinophils # (auto) 0.2 10 ^3/uL (0-0.8); Eosinophils % (auto) 2.8 % (0.0-7.0); Hematocrit 38.6 % (36.0-46.0); Hemoglobin 12.4 g/dL (12.2-16.2); Lymphocytes # (auto) 0.9 10 ^3/uL (0.4-5.4); Lymphocytes % (auto) 12.7 % (10.0-50.0); Mean Corpuscular Hemoglobin 27.6 pg (28.0-32.0); Mean Corpuscular Hgb Conc. 32.1 g/dL (32.0-36.0); Mean Corpuscular Volume 86.1 fL (80.0-100.0); Monocytes # (auto) 0.8 10 ^3/uL (0-1.3); Monocytes % (auto) 10.5 % (0.0-12.0); Neutrophils # (auto) 5.3 10 ^3/uL (1.6-8.6); Neutrophils % (auto) 73.2 % (37.0-80.0); Nucleated Red Blood Cells % 0.1 %; Red Blood Cells 4.49 10^6/uL (4.0-5.20); Red Cell Distribution Width 19.8 % (11.8-14.3); White Blood Cell 7.2 10^3/uL (4.4-10.8)
[2022-11-30 12:06] LABS: Alanine Aminotransferase 18 U/L (7-40); Alkaline Phosphatase 140 U/L (46-116); Anion Gap 7 (5-15); BUN/Creatinine Ratio 9.3 (10.0-20.0); Blood Urea Nitrogen 10 mg/dL (9-23); Carbon Dioxide 24 mmol/L (20-30); Chloride 108 mmol/L (98-107); Glucose 95 mg/dL (74-106); Potassium 4.4 mmol/L (3.5-5.1); Sodium 139 mmol/L (136-145)
[2022-11-30 12:07] LABS: Albumin 2.4 g/dL (3.2-4.8); Aspartate Aminotransferase 32 U/L (13-40); Bilirubin, Total 0.5 mg/dL (0.2-1.0); Total Protein 5.3 g/dL (5.7-8.2)
[2022-11-30] MEDS ORDERED: ASPirin 325 MG TAB PO ONE (12:45)
[2022-11-30 13:20] VITALS: PULSE 80; RESP 18; O2SAT 98
[2022-11-30] MEDS ORDERED: IOHEXOL 350 MG/ML 100ML IJ ONE (14:51)
[2022-11-30] MEDS ORDERED: FUROSEMIDE 20 MG/2 ML VIAL IV ONE (15:15)
[2022-11-30] MEDS ORDERED: ERGOCALCIFEROL 50,000 UNIT(1.25MG) CAP PO SCH (15:15)
[2022-11-30] MEDS ORDERED: NITROGLYCERIN 0.4 MG SL TAB SL PRN (15:15)
[2022-11-30] MEDS ORDERED: traMADol HCL 50 MG TAB PO PRN (15:15)
[2022-11-30] MEDS ORDERED: HYDROcodone-ACET 5/325MG TAB PO PRN (15:15)
[2022-11-30] MEDS ORDERED: MORPHINE SULFATE INJ 2 MG/ml SYRG IV PRN (15:15)
[2022-11-30 16:37] VITALS: PULSE 83; RESP 16; O2SAT 99
[2022-11-30] MEDS ORDERED: OXY5T PO (16:42)
[2022-11-30] MEDS ORDERED: ONDA-188 PO (16:42)
[2022-11-30 18:51] VITALS: BP 134/80; PULSE 86; RESP 18; TEMP 98.3
[2022-11-30 19:00] VITALS: RESP 22
[2022-11-30] MEDS ORDERED: AMOX600S (19:11)
[2022-11-30] MEDS ORDERED: ASCO500T11 PO (19:11)
[2022-11-30] MEDS ORDERED: MULT-119 OR (19:14)
[2022-11-30] MEDS ORDERED: COLLPOW10 XX (19:14)
[2022-11-30 20:00] VITALS: BP 134/80; PULSE 81; PULSE 86; RESP 16; TEMP 98.3; O2SAT 99
[2022-11-30 21:48] VITALS: BP 134/80; PULSE 86; RESP 16; TEMP 98.3; O2SAT 99
[2022-11-30] MEDS: SUCRALFATE 1 GM TAB PO SCH (21:54)
[2022-11-30] MEDS: FAMOTIDINE 20 MG TAB PO SCH (21:54)
[2022-11-30] MEDS ORDERED: ATORVASTATIN 20 MG TAB PO SCH (22:00)
[2022-11-30] MEDS: ACETAMINOPHEN 325 MG TAB PO PRN (22:31)
[2022-12-01] VITALS (8 sets, daily range): BP systolic 113–148; BP diastolic 52–80; PULSE 86–95; RESP 16–20; TEMP 96.9–97.9; O2SAT 90–97
[2022-12-01 03:12] LABS: Urine Bacteria FEW /hpf (None Seen); Urine Blood Negative /uL (Negative); Urine Clarity Clear (Clear); Urine Color Colorless (Yellow); Urine Hyaline Cast FEW /lpf (0 - 2); Urine Protein, UAD Negative (Negative); Urine Specific Gravity 1.006 (1.001-1.035); Urine Urobilinogen Normal (Negative); Urine WBC 16 /hpf (0 - 5)
[2022-12-01] MEDS ORDERED: LEVOTHYROXINE SODIUM 100 MCG TAB PO SCH (07:00)
[2022-12-01] MEDS: SUCRALFATE 1 GM TAB PO SCH ×4 (07:00→21:14)
[2022-12-01 09:14] LABS: Basophils # (auto) 0.1 10 ^3/uL (0-0.2); Basophils % (auto) 1.5 % (0.0-2.0); Eosinophils # (auto) 0.5 10 ^3/uL (0-0.8); Eosinophils % (auto) 6.8 % (0.0-7.0); Hematocrit 34.5 % (36.0-46.0); Hemoglobin 11.1 g/dL (12.2-16.2); Lymphocytes # (auto) 0.9 10 ^3/uL (0.4-5.4); Lymphocytes % (auto) 13.1 % (10.0-50.0); Mean Corpuscular Hemoglobin 27.8 pg (28.0-32.0); Mean Corpuscular Hgb Conc. 32.1 g/dL (32.0-36.0); Mean Corpuscular Volume 86.5 fL (80.0-100.0); Monocytes # (auto) 0.8 10 ^3/uL (0-1.3); Monocytes % (auto) 12.2 % (0.0-12.0); Neutrophils # (auto) 4.4 10 ^3/uL (1.6-8.6); Neutrophils % (auto) 66.4 % (37.0-80.0); Nucleated Red Blood Cells % 0.2 %; Red Blood Cells 3.99 10^6/uL (4.0-5.20); Red Cell Distribution Width 20.1 % (11.8-14.3); White Blood Cell 6.7 10^3/uL (4.4-10.8)
[2022-12-01 09:44] LABS: Alanine Aminotransferase 15 U/L (7-40); Albumin 2.1 g/dL (3.2-4.8); Alkaline Phosphatase 127 U/L (46-116); Anion Gap 5 (5-15); Aspartate Aminotransferase 21 U/L (13-40); BUN/Creatinine Ratio 5.4 (10.0-20.0); Blood Urea Nitrogen 5 mg/dL (9-23); Calcium 7.6 mg/dL (8.5-10.1); Carbon Dioxide 25 mmol/L (20-30); Chloride 109 mmol/L (98-107); Glucose 85 mg/dL (74-106); Potassium 3.8 mmol/L (3.5-5.1); Sodium 139 mmol/L (136-145)
[2022-12-01 09:45] LABS: Bilirubin, Total 0.6 mg/dL (0.2-1.0); Total Protein 4.8 g/dL (5.7-8.2)
[2022-12-01] MEDS ORDERED: CYANOCOBALAMIN 500 MCG TAB PO SCH (10:00)
[2022-12-01] MEDS ORDERED: METOPROLOL SUCCINATE XL 50 MG TAB PO SCH (10:00)
[2022-12-01] MEDS ORDERED: amLODIPine BESYLATE 5 MG TAB PO SCH (10:00)
[2022-12-01] MEDS ORDERED: CLOPIDOGREL BISULFATE 75 MG TAB PO SCH (10:00)
[2022-12-01] MEDS: FAMOTIDINE 20 MG TAB PO SCH (10:00)
[2022-12-01] MEDS: cefTRIAXone 1GM/50ML D5W 50 ML IV SCH (12:07)
[2022-12-01] MEDS: ENOXAPARIN SOD 40 MG/0.4 ML SYRINGE SC SCH (12:08)
[2022-12-01] MEDS: FUROSEMIDE 20 MG/2 ML VIAL IV SCH (12:08)
[2022-12-01] MEDS: ACETAMINOPHEN 325 MG TAB PO PRN (14:02)
[2022-12-02] VITALS (7 sets, daily range): BP systolic 113–138; BP diastolic 52–75; PULSE 76–97; RESP 18–20; TEMP 97.4–97.9; O2SAT 89–97
[2022-12-02] MEDS: SUCRALFATE 1 GM TAB PO SCH ×4 (06:08→22:00)
[2022-12-02] MEDS: ONDANSETRON HCL 4 MG/2 ML VIAL IV PRN (10:03)
[2022-12-02] MEDS: ENOXAPARIN SOD 40 MG/0.4 ML SYRINGE SC SCH (10:04)
[2022-12-02] MEDS: FUROSEMIDE 20 MG/2 ML VIAL IV SCH (10:04)
[2022-12-02] MEDS: cefTRIAXone 1GM/50ML D5W 50 ML IV SCH (10:04)
[2022-12-02] MEDS ORDERED: LEVOTHYROXINE SODIUM 100 MCG/5 ML INJ IV ONE (10:30)
[2022-12-02 12:02] LABS: INR 1.19 (0.9-1.15); Prothrombin Time 12.4 sec (9.3-11.8)
[2022-12-02] MEDS ORDERED: CLINIMIX PER PHARMACY 0 ML IV SCH (14:15)
[2022-12-02 16:31] LABS: Potassium 3.9 mmol/L (3.5-5.1)
[2022-12-02 16:32] LABS: Calcium 7.5 mg/dL (8.7-10.4)
[2022-12-02 16:38] LABS: BUN/Creatinine Ratio 9.7 (10.0-20.0); Magnesium 1.6 mg/dL (1.6-2.6)
[2022-12-02 16:39] LABS: Albumin 2.2 g/dL (3.2-4.8)
[2022-12-02 16:40] LABS: Phosphorus 2.8 mg/dL (2.4-5.1)
[2022-12-02] MEDS: MAGNESIUM SULFATE 1GM/100ML 100 ML IV SCH ×2 (19:27→20:23)
[2022-12-02] MEDS: metroNIDAZOLE 500MG/100ML 100 ML IV SCH ×2 (19:27→22:53)
[2022-12-02] MEDS ORDERED: AMINO ACID INFUSION IN D10W 1,000 ML IV NR (20:00)
[2022-12-02] MEDS: InsuLIN REG 1unit/0.01ml Soln (100units/ml) SC SCH (22:52)
[2022-12-02] MEDS: ACCU-CHEK COMFORT CURVE STRIP VI SCH (22:52)
[2022-12-03] VITALS (7 sets, daily range): BP systolic 115–145; BP diastolic 53–77; PULSE 79–95; RESP 18–20; TEMP 97.5–98.7; O2SAT 85–96
[2022-12-03] MEDS ORDERED: DEXTROSE (50%) 50ML SYRG IV SCH
[2022-12-03] MEDS: InsuLIN REG 1unit/0.01ml Soln (100units/ml) SC SCH ×3 (06:00→17:47)
[2022-12-03] MEDS: ACCU-CHEK COMFORT CURVE STRIP VI SCH ×3 (06:04→17:47)
[2022-12-03 06:09] LABS: Basophils # (auto) 0.2 10 ^3/uL (0-0.2); Basophils % (auto) 3.7 % (0.0-2.0); Eosinophils # (auto) 0.3 10 ^3/uL (0-0.8); Eosinophils % (auto) 6.1 % (0.0-7.0); Hematocrit 31.5 % (36.0-46.0); Hemoglobin 10.2 g/dL (12.2-16.2); Lymphocytes # (auto) 0.7 10 ^3/uL (0.4-5.4); Lymphocytes % (auto) 13.6 % (10.0-50.0); Mean Corpuscular Hgb Conc. 32.2 g/dL (32.0-36.0); Mean Corpuscular Volume 86.9 fL (80.0-100.0); Monocytes # (auto) 0.7 10 ^3/uL (0-1.3); Monocytes % (auto) 14.4 % (0.0-12.0); Neutrophils # (auto) 3.2 10 ^3/uL (1.6-8.6); Neutrophils % (auto) 62.2 % (37.0-80.0); Nucleated Red Blood Cells % 0.2 %; Red Blood Cells 3.63 10^6/uL (4.0-5.20); White Blood Cell 5.2 10^3/uL (4.4-10.8)
[2022-12-03] MEDS: metroNIDAZOLE 500MG/100ML 100 ML IV SCH ×3 (06:09→21:49)
[2022-12-03] MEDS: SUCRALFATE 1 GM TAB PO SCH ×4 (06:09→21:50)
[2022-12-03 06:12] LABS: Red Cell Distribution Width 20.3 % (11.8-14.3)
[2022-12-03 06:15] LABS: Alanine Aminotransferase 12 U/L (7-40); Alkaline Phosphatase 116 U/L (46-116); Anion Gap 6 (5-15); Aspartate Aminotransferase 17 U/L (13-40); BUN/Creatinine Ratio 6.3 (10.0-20.0); Blood Urea Nitrogen 6 mg/dL (9-23); Calcium 7.2 mg/dL (8.5-10.1); Carbon Dioxide 27 mmol/L (20-30); Chloride 101 mmol/L (98-107); Glucose 399 mg/dL (74-106); Potassium 3.3 mmol/L (3.5-5.1); Sodium 134 mmol/L (136-145)
[2022-12-03 06:16] LABS: Bilirubin, Total 0.5 mg/dL (0.2-1.0); Phosphorus 2.6 mg/dL (2.4-5.1); Total Protein 4.6 g/dL (5.7-8.2)
[2022-12-03 07:02] LABS: Magnesium 1.7 mg/dL (1.6-2.6)
[2022-12-03] MEDS: cefTRIAXone 1GM/50ML D5W 50 ML IV SCH (10:02)
[2022-12-03] MEDS: FUROSEMIDE 20 MG/2 ML VIAL IV SCH (10:03)
[2022-12-03] MEDS: ENOXAPARIN SOD 40 MG/0.4 ML SYRINGE SC SCH (10:03)
[2022-12-03] MEDS ORDERED: CALCIUM GLUC 1,000mg/50ml-NS 50 ML IV ONE (11:15)
[2022-12-03] MEDS: POTASSIUM CHL 20MEQ/100ML 100 ML IV SCH ×2 (12:23→14:48)
[2022-12-03] MEDS: MAGNESIUM SULFATE 1GM/100ML 100 ML IV SCH ×2 (13:00→14:48)
[2022-12-03] MEDS: MORPHINE SULFATE INJ 2 MG/ml SYRG IV PRN ×2 (13:38→21:50)
[2022-12-03] MEDS ORDERED: FUROSEMIDE 20 MG/2 ML VIAL IV ONE (15:00)
[2022-12-03] MEDS ORDERED: SODIUM PHOSPHATES 20 MEQ in SODIUM CHL 0.9% 100 ML IV ONE (16:00)
[2022-12-03] MEDS ORDERED: AMINO ACID INFUSION IN D10W 1,000 ML IV NR (20:00)
[2022-12-03] MEDS: ONDANSETRON HCL 4 MG/2 ML VIAL IV PRN (22:06)
[2022-12-04] VITALS (7 sets, daily range): BP systolic 124–151; BP diastolic 64–84; PULSE 67–95; RESP 17–20; TEMP 97.6–98.7; O2SAT 94–97
[2022-12-04] MEDS: ACCU-CHEK COMFORT CURVE STRIP VI SCH ×4 (00:11→18:00)
[2022-12-04] MEDS: ONDANSETRON HCL 4 MG/2 ML VIAL IV PRN (04:29)
[2022-12-04] MEDS: InsuLIN REG 1unit/0.01ml Soln (100units/ml) SC SCH ×4 (05:33→18:00)
[2022-12-04] MEDS: metroNIDAZOLE 500MG/100ML 100 ML IV SCH ×3 (05:35→21:07)
[2022-12-04] MEDS: SUCRALFATE 1 GM TAB PO SCH ×4 (05:46→22:00)
[2022-12-04 07:21] LABS: Basophils # (auto) 0.1 10 ^3/uL (0-0.2); Basophils % (auto) 1.5 % (0.0-2.0); Eosinophils # (auto) 0.4 10 ^3/uL (0-0.8); Eosinophils % (auto) 5.9 % (0.0-7.0); Hematocrit 32.6 % (36.0-46.0); Hemoglobin 10.5 g/dL (12.2-16.2); Lymphocytes # (auto) 0.7 10 ^3/uL (0.4-5.4); Lymphocytes % (auto) 10.9 % (10.0-50.0); Mean Corpuscular Hemoglobin 27.8 pg (28.0-32.0); Mean Corpuscular Hgb Conc. 32.3 g/dL (32.0-36.0); Mean Corpuscular Volume 85.8 fL (80.0-100.0); Monocytes # (auto) 0.9 10 ^3/uL (0-1.3); Monocytes % (auto) 14.1 % (0.0-12.0); Neutrophils # (auto) 4.2 10 ^3/uL (1.6-8.6); Neutrophils % (auto) 67.6 % (37.0-80.0); Nucleated Red Blood Cells % 0.2 %; White Blood Cell 6.2 10^3/uL (4.4-10.8)
[2022-12-04 07:33] LABS: Potassium 3.4 mmol/L (3.5-5.1)
[2022-12-04 07:34] LABS: Calcium 7.4 mg/dL (8.5-10.1)
[2022-12-04 07:39] LABS: BUN/Creatinine Ratio 7.9 (10.0-20.0)
[2022-12-04 07:40] LABS: Albumin 2.2 g/dL (3.2-4.8)
[2022-12-04 07:41] LABS: Phosphorus 3.2 mg/dL (2.4-5.1)
[2022-12-04 08:17] LABS: Magnesium 1.8 mg/dL (1.6-2.6)
[2022-12-04] MEDS: cefTRIAXone 1GM/50ML D5W 50 ML IV SCH ×2 (09:32→13:02)
[2022-12-04] MEDS: ENOXAPARIN SOD 40 MG/0.4 ML SYRINGE SC SCH (09:33)
[2022-12-04] MEDS: FUROSEMIDE 20 MG/2 ML VIAL IV SCH (09:35)
[2022-12-04] MEDS: POTASSIUM CHL 20MEQ/100ML 100 ML IV SCH ×3 (10:15→19:20)
[2022-12-04] MEDS ORDERED: AMIODARONE HCL 200 MG TAB PO ONE (19:00)
[2022-12-04] MEDS ORDERED: POTASSIUM CHL 20MEQ/100ML 100 ML IV SCH (19:15)
[2022-12-04] MEDS: AMINO ACID INFUSION IN D10W 1,000 ML IV NR (20:18)
[2022-12-05] MEDS: ACCU-CHEK COMFORT CURVE STRIP VI SCH ×4 (00:26→18:12)
[2022-12-05] MEDS: ONDANSETRON HCL 4 MG/2 ML VIAL IV PRN ×2 (01:14→10:48)
[2022-12-05] MEDS: MORPHINE SULFATE INJ 2 MG/ml SYRG IV PRN (01:15)
[2022-12-05 05:00] VITALS: BP 105/55; PULSE 103; RESP 16; TEMP 97.6; O2SAT 99
[2022-12-05] MEDS: metroNIDAZOLE 500MG/100ML 100 ML IV SCH ×3 (05:02→21:02)
[2022-12-05] MEDS: InsuLIN REG 1unit/0.01ml Soln (100units/ml) SC SCH ×4 (05:06→18:00)
[2022-12-05] MEDS: SUCRALFATE 1 GM TAB PO SCH ×4 (05:10→21:11)
[2022-12-05 06:33] LABS: Alanine Aminotransferase 11 U/L (7-40); Albumin 2.1 g/dL (3.2-4.8); Alkaline Phosphatase 112 U/L (46-116); Aspartate Aminotransferase 21 U/L (13-40); Bilirubin, Total 0.4 mg/dL (0.2-1.0); Calcium 7.4 mg/dL (8.5-10.1); Chloride 105 mmol/L (98-107); Glucose 95 mg/dL (74-106); Phosphorus 2.1 mg/dL (2.4-5.1); Potassium 3.7 mmol/L (3.5-5.1); Sodium 137 mmol/L (136-145); Total Protein 4.9 g/dL (5.7-8.2)
[2022-12-05 06:44] LABS: BUN/Creatinine Ratio 7.1 (10.0-20.0); Blood Urea Nitrogen < 5 mg/dL (9-23)
[2022-12-05 07:01] LABS: Anion Gap 9 (5-15); Carbon Dioxide 23 mmol/L (20-30)
[2022-12-05] MEDS ORDERED: AMIODARONE HCL 200 MG TAB PO SCH (08:00)
[2022-12-05 08:30] VITALS: PULSE 96; PULSE 97; RESP 20; O2SAT 94
[2022-12-05] MEDS: ENOXAPARIN SOD 40 MG/0.4 ML SYRINGE SC SCH (10:48)
[2022-12-05] MEDS: FUROSEMIDE 20 MG/2 ML VIAL IV SCH (10:48)
[2022-12-05] MEDS: cefTRIAXone 1GM/50ML D5W 50 ML IV SCH (11:05)
[2022-12-05 12:51] LABS: Magnesium 1.8 mg/dL (1.6-2.6)
[2022-12-05] MEDS ORDERED: POTASSIUM PHOSPHATE 44 MEQ in D5W 5% 250 ML IV ONE (14:00)
[2022-12-05 14:45] VITALS: BP 150/73; PULSE 90; RESP 20; TEMP 97.8; O2SAT 98
[2022-12-05 20:00] VITALS: PULSE 91; PULSE 93; RESP 20; O2SAT 95
[2022-12-05] MEDS: AMINO ACID INFUSION IN D10W 1,000 ML IV NR (21:03)
[2022-12-05 22:00] VITALS: BP 127/67; PULSE 85; RESP 18; TEMP 97.7; O2SAT 95
[2022-12-06] MEDS: ONDANSETRON HCL 4 MG/2 ML VIAL IV PRN ×2 (00:27→17:20)
[2022-12-06] MEDS: MORPHINE SULFATE INJ 2 MG/ml SYRG IV PRN (00:28)
[2022-12-06] MEDS: ACCU-CHEK COMFORT CURVE STRIP VI SCH ×4 (00:28→17:47)
[2022-12-06 05:00] VITALS: BP 113/62; PULSE 101; RESP 18; TEMP 98; O2SAT 92
[2022-12-06] MEDS: metroNIDAZOLE 500MG/100ML 100 ML IV SCH ×3 (05:38→21:11)
[2022-12-06] MEDS: InsuLIN REG 1unit/0.01ml Soln (100units/ml) SC SCH ×4 (05:44→17:50)
[2022-12-06 06:23] LABS: Albumin 2.2 g/dL (3.2-4.8); Alkaline Phosphatase 107 U/L (46-116); Anion Gap 5 (5-15); Aspartate Aminotransferase 16 U/L (13-40); BUN/Creatinine Ratio 7.2 (10.0-20.0); Blood Urea Nitrogen 5 mg/dL (9-23); Calcium 7.6 mg/dL (8.5-10.1); Carbon Dioxide 28 mmol/L (20-30); Chloride 105 mmol/L (98-107); Glucose 92 mg/dL (74-106); Potassium 3.7 mmol/L (3.5-5.1); Sodium 138 mmol/L (136-145)
[2022-12-06 06:24] LABS: Bilirubin, Total 0.4 mg/dL (0.2-1.0); Phosphorus 3.5 mg/dL (2.4-5.1); Total Protein 4.9 g/dL (5.7-8.2)
[2022-12-06 06:27] LABS: Alanine Aminotransferase < 9 U/L (7-40)
[2022-12-06] MEDS: SUCRALFATE 1 GM TAB PO SCH ×2 (07:00→11:30)
[2022-12-06 07:21] LABS: Magnesium 1.5 mg/dL (1.6-2.6)
[2022-12-06 08:30] VITALS: PULSE 85; RESP 20; O2SAT 95
[2022-12-06 08:52] VITALS: BP 134/71; PULSE 82; RESP 18; TEMP 97.6; O2SAT 99
[2022-12-06] MEDS: ENOXAPARIN SOD 40 MG/0.4 ML SYRINGE SC SCH (10:00)
[2022-12-06] MEDS: cefTRIAXone 1GM/50ML D5W 50 ML IV SCH (10:47)
[2022-12-06] MEDS: FUROSEMIDE 20 MG/2 ML VIAL IV SCH (11:00)
[2022-12-06 12:40] VITALS: BP 131/73; PULSE 86; RESP 20; TEMP 97.2; O2SAT 91
[2022-12-06] MEDS ORDERED: IOHEXOL 350 MG/ML 100ML IJ ONE (14:02)
[2022-12-06] MEDS ORDERED: TPN PER PHARMACY 0 ML IV SCH (15:45)
[2022-12-06] MEDS: MAGNESIUM SULFATE 1GM/100ML 100 ML IV SCH ×2 (16:30→17:20)
[2022-12-06 17:00] VITALS: BP 130/60; PULSE 95; RESP 18; TEMP 98; O2SAT 96
[2022-12-06 17:12] LABS: INR 1.19 (0.9-1.15); Partial Thromboplastin Time 29.6 SEC (24.5-34.5); Prothrombin Time 12.4 sec (9.3-11.8)
[2022-12-06] MEDS ORDERED: LIDOCAINE 1% (LOCAL ANESTH.) PF 5ml SDV ID ONE (19:45)
[2022-12-06 20:00] VITALS: PULSE 89; PULSE 99; RESP 20; O2SAT 95
[2022-12-06] MEDS: PANTOPRAZOLE 40 MG/10 ML VIAL INJ IV SCH (21:10)
[2022-12-06] MEDS: AMINO ACID INFUSION IN D10W 1,000 ML IV NR (21:10)
[2022-12-06] MEDS: SODIUM CHLOR 0.9% PF (SALINE LOCK) 10ML VIAL/SYR IV SCH (21:11)
[2022-12-06] MEDS: CEFEPIME 1GM/ 50ML 50 ML IV SCH (22:23)
[2022-12-07 04:45] VITALS: BP 104/51; PULSE 98; RESP 16; TEMP 99.1; O2SAT 82
[2022-12-07] MEDS: ACCU-CHEK COMFORT CURVE STRIP VI SCH ×4 (05:40→17:40)
[2022-12-07] MEDS: metroNIDAZOLE 500MG/100ML 100 ML IV SCH ×3 (05:40→21:27)
[2022-12-07] MEDS: InsuLIN REG 1unit/0.01ml Soln (100units/ml) SC SCH ×4 (05:41→17:40)
[2022-12-07 06:22] LABS: Basophils # (auto) 0.1 10 ^3/uL (0-0.2); Basophils % (auto) 1.3 % (0.0-2.0); Eosinophils # (auto) 0.4 10 ^3/uL (0-0.8); Eosinophils % (auto) 6.9 % (0.0-7.0); Hematocrit 31.1 % (36.0-46.0); Hemoglobin 10.2 g/dL (12.2-16.2); Lymphocytes # (auto) 0.6 10 ^3/uL (0.4-5.4); Lymphocytes % (auto) 9.6 % (10.0-50.0); Mean Corpuscular Hemoglobin 28.5 pg (28.0-32.0); Mean Corpuscular Hgb Conc. 32.8 g/dL (32.0-36.0); Mean Corpuscular Volume 86.9 fL (80.0-100.0); Monocytes # (auto) 0.9 10 ^3/uL (0-1.3); Monocytes % (auto) 14.4 % (0.0-12.0); Neutrophils # (auto) 4.4 10 ^3/uL (1.6-8.6); Neutrophils % (auto) 67.8 % (37.0-80.0); Nucleated Red Blood Cells % 0.1 %; Red Blood Cells 3.57 10^6/uL (4.0-5.20); White Blood Cell 6.5 10^3/uL (4.4-10.8)
[2022-12-07 06:25] LABS: Albumin 2.2 g/dL (3.2-4.8); Alkaline Phosphatase 103 U/L (46-116); Anion Gap 2 (5-15); Aspartate Aminotransferase 15 U/L (13-40); BUN/Creatinine Ratio 7.4 (10.0-20.0); Blood Urea Nitrogen 6 mg/dL (9-23); Calcium 7.4 mg/dL (8.7-10.4); Carbon Dioxide 29 mmol/L (20-30); Chloride 100 mmol/L (98-107); Glucose 364 mg/dL (74-106); Magnesium 1.8 mg/dL (1.6-2.6); Potassium 3.1 mmol/L (3.5-5.1)
[2022-12-07 06:26] LABS: Bilirubin, Total 0.3 mg/dL (0.2-1.0); Phosphorus 2.1 mg/dL (2.4-5.1); Total Protein 4.8 g/dL (5.7-8.2)
[2022-12-07 06:37] LABS: Alanine Aminotransferase < 9 U/L (7-40); Sodium 131 mmol/L (136-145)
[2022-12-07 06:54] LABS: Red Cell Distribution Width 20.2 % (11.8-14.3)
[2022-12-07] MEDS: FUROSEMIDE 20 MG/2 ML VIAL IV SCH (08:24)
[2022-12-07] MEDS: ENOXAPARIN SOD 40 MG/0.4 ML SYRINGE SC SCH (08:24)
[2022-12-07] MEDS: ONDANSETRON HCL 4 MG/2 ML VIAL IV PRN (08:24)
[2022-12-07] MEDS: PANTOPRAZOLE 40 MG/10 ML VIAL INJ IV SCH ×2 (08:24→21:27)
[2022-12-07] MEDS: SODIUM CHLOR 0.9% PF (SALINE LOCK) 10ML VIAL/SYR IV SCH ×2 (08:25→21:27)
[2022-12-07 08:30] VITALS: PULSE 92; RESP 20; O2SAT 95
[2022-12-07 09:00] VITALS: BP 105/55; PULSE 80; RESP 19; TEMP 97.8; O2SAT 90
[2022-12-07] MEDS: CEFEPIME 1GM/ 50ML 50 ML IV SCH ×2 (09:30→21:27)
[2022-12-07] MEDS ORDERED: POTASSIUM CHL 20MEQ/100ML 100 ML IV ONE ×2 (11:00)
[2022-12-07 13:00] VITALS: BP 126/70; PULSE 87; RESP 18; TEMP 97.9; O2SAT 90
[2022-12-07] MEDS ORDERED: POTASSIUM PHOSPHATE 44 MEQ in D5W 5% 250 ML IV ONE (13:00)
[2022-12-07] MEDS: METOCLOPRAMIDE HCL 5MG/ml INJ 2ml VIAL IV PRN (16:18)
[2022-12-07 17:00] VITALS: BP 125/65; PULSE 86; RESP 18; TEMP 98; O2SAT 90
[2022-12-07] MEDS ORDERED: POTASSIUM PHOSPHATE 22 MEQ in SODIUM CHL 0.9% 100 ML IV ONE (18:00)
[2022-12-07] MEDS ORDERED: TPN PER PHARMACY IV NR ×10 (20:00)
[2022-12-07 22:00] VITALS: BP 135/62; PULSE 76; RESP 16; TEMP 97.9; O2SAT 90
[2022-12-08] MEDS: ACCU-CHEK COMFORT CURVE STRIP VI SCH ×4 (06:00→17:30)
[2022-12-08] MEDS: metroNIDAZOLE 500MG/100ML 100 ML IV SCH ×3 (06:00→21:01)
[2022-12-08] MEDS: InsuLIN REG 1unit/0.01ml Soln (100units/ml) SC SCH ×4 (06:00→17:32)
[2022-12-08 08:00] VITALS: PULSE 99; RESP 20; O2SAT 95
[2022-12-08] MEDS: SODIUM CHLOR 0.9% PF (SALINE LOCK) 10ML VIAL/SYR IV SCH ×2 (10:00→21:01)
[2022-12-08] MEDS: FUROSEMIDE 20 MG/2 ML VIAL IV SCH (10:00)
[2022-12-08] MEDS: ENOXAPARIN SOD 40 MG/0.4 ML SYRINGE SC SCH (10:00)
[2022-12-08] MEDS: CEFEPIME 1GM/ 50ML 50 ML IV SCH ×2 (10:00→22:42)
[2022-12-08] MEDS: PANTOPRAZOLE 40 MG/10 ML VIAL INJ IV SCH ×2 (10:00→21:01)
[2022-12-08 12:40] LABS: Chloride 104 mmol/L (98-107); Potassium 4.5 mmol/L (3.5-5.1)
[2022-12-08 12:43] LABS: Anion Gap 6 (5-15); Carbon Dioxide 27 mmol/L (20-30)
[2022-12-08 12:44] LABS: Calcium 8.1 mg/dL (8.5-10.1); Sodium 137 mmol/L (136-145)
[2022-12-08 12:49] LABS: Alkaline Phosphatase 104 U/L (46-116); Blood Urea Nitrogen < 5 mg/dL (9-23); Glucose 104 mg/dL (74-106)
[2022-12-08 12:51] LABS: Alanine Aminotransferase 19 U/L (7-40); Albumin 2.7 g/dL (3.2-4.8); Aspartate Aminotransferase 63 U/L (13-40); Bilirubin, Total 0.4 mg/dL (0.2-1.0); Phosphorus 3.3 mg/dL (2.4-5.1); Total Protein 6.2 g/dL (5.7-8.2)
[2022-12-08 14:31] LABS: Magnesium 2.1 mg/dL (1.6-2.6)
[2022-12-08 16:20] VITALS: BP 128/67; PULSE 87; RESP 20; TEMP 97.9; O2SAT 92
[2022-12-08] MEDS ORDERED: TPN PER PHARMACY IV NR ×11 (20:00)
[2022-12-08 22:00] VITALS: BP 115/49; PULSE 99; RESP 17; TEMP 98.4; O2SAT 88
[2022-12-09] MEDS: ACCU-CHEK COMFORT CURVE STRIP VI SCH ×4 (00:30→17:53)
[2022-12-09 05:00] VITALS: BP 151/70; PULSE 92; RESP 16; TEMP 97.4; O2SAT 85
[2022-12-09] MEDS: InsuLIN REG 1unit/0.01ml Soln (100units/ml) SC SCH ×4 (06:00→17:55)
[2022-12-09] MEDS: metroNIDAZOLE 500MG/100ML 100 ML IV SCH ×3 (06:02→20:35)
[2022-12-09 08:00] VITALS: RESP 20; O2SAT 95
[2022-12-09 08:30] VITALS: BP 144/71; PULSE 94; RESP 19; TEMP 97.6; O2SAT 93
[2022-12-09 09:15] LABS: Basophils # (auto) 0.1 10 ^3/uL (0-0.2); Eosinophils # (auto) 0.5 10 ^3/uL (0-0.8); Eosinophils % (auto) 6.8 % (0.0-7.0); Hematocrit 30.9 % (36.0-46.0); Lymphocytes # (auto) 0.8 10 ^3/uL (0.4-5.4); Lymphocytes % (auto) 10.2 % (10.0-50.0); Mean Corpuscular Hemoglobin 28.1 pg (28.0-32.0); Mean Corpuscular Hgb Conc. 32.4 g/dL (32.0-36.0); Mean Corpuscular Volume 86.7 fL (80.0-100.0); Monocytes # (auto) 1.1 10 ^3/uL (0-1.3); Monocytes % (auto) 13.7 % (0.0-12.0); Neutrophils # (auto) 5.3 10 ^3/uL (1.6-8.6); Neutrophils % (auto) 68.3 % (37.0-80.0); Nucleated Red Blood Cells % 0.1 %; Red Blood Cells 3.57 10^6/uL (4.0-5.20); Red Cell Distribution Width 20.7 % (11.8-14.3); White Blood Cell 7.7 10^3/uL (4.4-10.8)
[2022-12-09 09:39] LABS: Albumin 2.3 g/dL (3.2-4.8); Alkaline Phosphatase 93 U/L (46-116); Anion Gap 4 (5-15); Aspartate Aminotransferase 14 U/L (13-40); BUN/Creatinine Ratio 11.3 (10.0-20.0); Blood Urea Nitrogen 8 mg/dL (9-23); Calcium 7.6 mg/dL (8.7-10.4); Carbon Dioxide 29 mmol/L (20-30); Chloride 107 mmol/L (98-107); Glucose 104 mg/dL (74-106); Phosphorus 3.1 mg/dL (2.4-5.1); Potassium 3.4 mmol/L (3.5-5.1); Sodium 140 mmol/L (136-145)
[2022-12-09 09:40] LABS: Bilirubin, Total 0.4 mg/dL (0.2-1.0)
[2022-12-09 09:42] LABS: Alanine Aminotransferase < 9 U/L (7-40)
[2022-12-09] MEDS: PANTOPRAZOLE 40 MG/10 ML VIAL INJ IV SCH ×2 (09:53→21:59)
[2022-12-09] MEDS: CEFEPIME 1GM/ 50ML 50 ML IV SCH ×2 (09:53→21:59)
[2022-12-09] MEDS: ENOXAPARIN SOD 40 MG/0.4 ML SYRINGE SC SCH (09:54)
[2022-12-09] MEDS: FUROSEMIDE 20 MG/2 ML VIAL IV SCH (09:54)
[2022-12-09] MEDS: SODIUM CHLOR 0.9% PF (SALINE LOCK) 10ML VIAL/SYR IV SCH ×2 (09:54→21:59)
[2022-12-09] MEDS ORDERED: POTASSIUM CHL 20MEQ/100ML 100 ML IV ONE (11:30)
[2022-12-09 12:30] VITALS: BP 138/74; PULSE 79; RESP 19; TEMP 97.4; O2SAT 94
[2022-12-09 16:36] VITALS: BP 126/58; PULSE 86; RESP 19; TEMP 97.9; O2SAT 91
[2022-12-09] MEDS: ONDANSETRON HCL 4 MG/2 ML VIAL IV PRN (16:50)
[2022-12-09] MEDS ORDERED: TPN PER PHARMACY IV NR ×12 (20:00)
[2022-12-09 22:00] VITALS: BP 124/65; PULSE 89; RESP 17; TEMP 97.3; O2SAT 93
[2022-12-10] MEDS: ACCU-CHEK COMFORT CURVE STRIP VI SCH ×5 (00:22→21:36)
[2022-12-10] MEDS: METOCLOPRAMIDE HCL 5MG/ml INJ 2ml VIAL IV PRN (00:23)
[2022-12-10 05:00] VITALS: BP 112/62; PULSE 93; RESP 20; TEMP 98.1; O2SAT 95
[2022-12-10] MEDS: InsuLIN REG 1unit/0.01ml Soln (100units/ml) SC SCH ×5 (05:43→21:43)
[2022-12-10] MEDS: metroNIDAZOLE 500MG/100ML 100 ML IV SCH ×3 (06:00→21:34)
[2022-12-10 06:38] LABS: Albumin 2.4 g/dL (3.2-4.8); Alkaline Phosphatase 96 U/L (46-116); Anion Gap 5 (5-15); Aspartate Aminotransferase 14 U/L (13-40); BUN/Creatinine Ratio 16.4 (10.0-20.0); Blood Urea Nitrogen 11 mg/dL (9-23); Calcium 7.8 mg/dL (8.7-10.4); Carbon Dioxide 28 mmol/L (20-30); Chloride 106 mmol/L (98-107); Glucose 86 mg/dL (74-106); Magnesium 2.2 mg/dL (1.6-2.6); Potassium 3.9 mmol/L (3.5-5.1); Sodium 139 mmol/L (136-145)
[2022-12-10 06:39] LABS: Bilirubin, Total 0.3 mg/dL (0.2-1.0); Phosphorus 3.3 mg/dL (2.4-5.1); Total Protein 5.3 g/dL (5.7-8.2)
[2022-12-10 06:40] LABS: Alanine Aminotransferase < 9 U/L (7-40)
[2022-12-10 08:24] VITALS: RESP 20; O2SAT 95
[2022-12-10 09:46] VITALS: BP 110/74; PULSE 94; RESP 20; TEMP 97.8; O2SAT 95
[2022-12-10] MEDS: PANTOPRAZOLE 40 MG/10 ML VIAL INJ IV SCH ×2 (10:02→21:36)
[2022-12-10] MEDS: SODIUM CHLOR 0.9% PF (SALINE LOCK) 10ML VIAL/SYR IV SCH ×2 (10:02→21:36)
[2022-12-10] MEDS: CEFEPIME 1GM/ 50ML 50 ML IV SCH ×2 (10:02→21:35)
[2022-12-10] MEDS: FUROSEMIDE 20 MG/2 ML VIAL IV SCH (10:02)
[2022-12-10] MEDS: ENOXAPARIN SOD 40 MG/0.4 ML SYRINGE SC SCH (10:03)
[2022-12-10 12:52] VITALS: BP 111/60; PULSE 79; RESP 20; TEMP 97; O2SAT 94
[2022-12-10] MEDS: ONDANSETRON HCL 4 MG/2 ML VIAL IV PRN (17:31)
[2022-12-10] MEDS: ACETAMINOPHEN 325 MG TAB PO PRN (18:01)
[2022-12-10 20:00] VITALS: BP 131/71; PULSE 84; RESP 17; TEMP 98.4; O2SAT 93
[2022-12-10] MEDS ORDERED: TPN PER PHARMACY IV NR ×9 (20:00)
[2022-12-10 22:00] VITALS: BP 131/71; PULSE 84; RESP 17; TEMP 98.4; O2SAT 93
[2022-12-11] VITALS (7 sets, daily range): BP systolic 120–148; BP diastolic 61–72; PULSE 75–86; RESP 18–19; TEMP 97.6–98.1; O2SAT 91–98
[2022-12-11] MEDS: InsuLIN REG 1unit/0.01ml Soln (100units/ml) SC SCH ×4 (06:00→21:42)
[2022-12-11] MEDS: metroNIDAZOLE 500MG/100ML 100 ML IV SCH ×3 (06:25→21:41)
[2022-12-11] MEDS: ACCU-CHEK COMFORT CURVE STRIP VI SCH ×4 (06:26→21:42)
[2022-12-11 06:40] LABS: Alkaline Phosphatase 93 U/L (46-116); Anion Gap 4 (5-15); BUN/Creatinine Ratio 28.1 (10.0-20.0); Blood Urea Nitrogen 18 mg/dL (9-23); Calcium 7.8 mg/dL (8.7-10.4); Carbon Dioxide 27 mmol/L (20-30); Chloride 107 mmol/L (98-107); Glucose 100 mg/dL (74-106); Magnesium 2.2 mg/dL (1.6-2.6); Potassium 3.8 mmol/L (3.5-5.1); Sodium 138 mmol/L (136-145)
[2022-12-11 06:41] LABS: Albumin 2.5 g/dL (3.2-4.8); Aspartate Aminotransferase 15 U/L (13-40); Bilirubin, Total 0.3 mg/dL (0.2-1.0); Phosphorus 3.1 mg/dL (2.4-5.1); Total Protein 5.3 g/dL (5.7-8.2)
[2022-12-11 06:53] LABS: Alanine Aminotransferase < 9 U/L (7-40)
[2022-12-11] MEDS: FUROSEMIDE 20 MG/2 ML VIAL IV SCH (09:44)
[2022-12-11] MEDS: PANTOPRAZOLE 40 MG/10 ML VIAL INJ IV SCH ×2 (09:44→21:41)
[2022-12-11] MEDS: ENOXAPARIN SOD 40 MG/0.4 ML SYRINGE SC SCH (09:44)
[2022-12-11] MEDS: SODIUM CHLOR 0.9% PF (SALINE LOCK) 10ML VIAL/SYR IV SCH ×2 (09:45→21:42)
[2022-12-11] MEDS: CEFEPIME 1GM/ 50ML 50 ML IV SCH ×2 (09:45→21:42)
[2022-12-11] MEDS: METOCLOPRAMIDE HCL 5MG/ml INJ 2ml VIAL IV PRN (13:21)
[2022-12-11] MEDS: ACETAMINOPHEN 325 MG TAB PO PRN (13:21)
[2022-12-11] MEDS ORDERED: TPN PER PHARMACY IV NR ×10 (20:00)
[2022-12-12 05:14] VITALS: BP 110/62; PULSE 92; RESP 18; TEMP 98.3; O2SAT 91
[2022-12-12] MEDS: metroNIDAZOLE 500MG/100ML 100 ML IV SCH ×3 (05:17→21:34)
[2022-12-12] MEDS: InsuLIN REG 1unit/0.01ml Soln (100units/ml) SC SCH ×2 (06:00→11:35)
[2022-12-12] MEDS: ACCU-CHEK COMFORT CURVE STRIP VI SCH ×2 (06:02→11:34)
[2022-12-12 07:46] VITALS: RESP 18
[2022-12-12 09:00] VITALS: BP 122/66; PULSE 83; RESP 18; TEMP 97.5; O2SAT 92
[2022-12-12] MEDS: ENOXAPARIN SOD 40 MG/0.4 ML SYRINGE SC SCH (10:28)
[2022-12-12] MEDS: FUROSEMIDE 20 MG/2 ML VIAL IV SCH (10:28)
[2022-12-12] MEDS: PANTOPRAZOLE 40 MG/10 ML VIAL INJ IV SCH ×2 (10:28→21:35)
[2022-12-12] MEDS: SODIUM CHLOR 0.9% PF (SALINE LOCK) 10ML VIAL/SYR IV SCH ×2 (10:28→21:35)
[2022-12-12] MEDS: CEFEPIME 1GM/ 50ML 50 ML IV SCH ×2 (10:28→21:34)
[2022-12-12] MEDS: ONDANSETRON HCL 4 MG/2 ML VIAL IV PRN (10:28)
[2022-12-12] MEDS: ACETAMINOPHEN 325 MG TAB PO PRN ×2 (10:29→21:40)
[2022-12-12 10:36] LABS: Potassium 3.9 mmol/L (3.5-5.1)
[2022-12-12 10:42] LABS: BUN/Creatinine Ratio 26.4 (10.0-20.0)
[2022-12-12 10:44] LABS: Albumin 1.9 g/dL (3.2-4.8)
[2022-12-12 13:00] VITALS: BP 109/61; PULSE 82; RESP 17; TEMP 98.4; O2SAT 94
[2022-12-12 13:18] LABS: Magnesium 2.3 mg/dL (1.6-2.6)
[2022-12-12 17:00] VITALS: BP 130/70; PULSE 85; RESP 17; TEMP 97.9; O2SAT 92
[2022-12-12] MEDS ORDERED: TPN PER PHARMACY IV NR ×10 (20:00)
[2022-12-12] MEDS: METOCLOPRAMIDE HCL 5MG/ml INJ 2ml VIAL IV PRN (21:40)
[2022-12-12 22:00] VITALS: BP 120/58; PULSE 91; RESP 17; TEMP 97.9; O2SAT 90
[2022-12-13] VITALS (7 sets, daily range): BP systolic 94–116; BP diastolic 44–50; PULSE 82–93; RESP 17–19; TEMP 97.3–98.2; O2SAT 92–95
[2022-12-13] MEDS: metroNIDAZOLE 500MG/100ML 100 ML IV SCH ×3 (05:33→22:00)
[2022-12-13 07:08] LABS: Basophils # (auto) 0.1 10 ^3/uL (0-0.2); Basophils % (auto) 2.1 % (0.0-2.0); Eosinophils # (auto) 0.4 10 ^3/uL (0-0.8); Hematocrit 27.3 % (36.0-46.0); Hemoglobin 8.9 g/dL (12.2-16.2); Lymphocytes # (auto) 0.8 10 ^3/uL (0.4-5.4); Lymphocytes % (auto) 14.6 % (10.0-50.0); Mean Corpuscular Hemoglobin 28.7 pg (28.0-32.0); Mean Corpuscular Hgb Conc. 32.6 g/dL (32.0-36.0); Mean Corpuscular Volume 87.9 fL (80.0-100.0); Monocytes # (auto) 0.8 10 ^3/uL (0-1.3); Monocytes % (auto) 14.6 % (0.0-12.0); Neutrophils # (auto) 3.3 10 ^3/uL (1.6-8.6); Neutrophils % (auto) 60.7 % (37.0-80.0); Nucleated Red Blood Cells % 0.2 %; Red Blood Cells 3.11 10^6/uL (4.0-5.20); White Blood Cell 5.4 10^3/uL (4.4-10.8)
[2022-12-13 07:23] LABS: Alkaline Phosphatase 72 U/L (46-116); Anion Gap 9 (5-15); Aspartate Aminotransferase 9 U/L (13-40); Blood Urea Nitrogen 16 mg/dL (9-23); Carbon Dioxide 21 mmol/L (20-30); Chloride 109 mmol/L (98-107); Potassium 3.2 mmol/L (3.5-5.1); Sodium 139 mmol/L (136-145)
[2022-12-13 07:24] LABS: Bilirubin, Total 0.3 mg/dL (0.2-1.0); Phosphorus 4.3 mg/dL (2.4-5.1); Total Protein 4.4 g/dL (5.7-8.2)
[2022-12-13 07:34] LABS: Alanine Aminotransferase < 9 U/L (7-40)
[2022-12-13 08:49] LABS: Glucose 72 mg/dL (74-106)
[2022-12-13 10:07] LABS: Magnesium 1.9 mg/dL (1.6-2.6)
[2022-12-13] MEDS: ENOXAPARIN SOD 40 MG/0.4 ML SYRINGE SC SCH (10:13)
[2022-12-13] MEDS: PANTOPRAZOLE 40 MG/10 ML VIAL INJ IV SCH ×2 (10:13→21:43)
[2022-12-13] MEDS: CEFEPIME 1GM/ 50ML 50 ML IV SCH ×2 (10:14→21:43)
[2022-12-13] MEDS: FUROSEMIDE 20 MG/2 ML VIAL IV SCH (10:14)
[2022-12-13] MEDS: SODIUM CHLOR 0.9% PF (SALINE LOCK) 10ML VIAL/SYR IV SCH ×2 (10:15→22:00)
[2022-12-13] MEDS: ACETAMINOPHEN 325 MG TAB PO PRN (19:39)
[2022-12-13] MEDS: METOCLOPRAMIDE HCL 5MG/ml INJ 2ml VIAL IV PRN (19:39)
[2022-12-14] VITALS (7 sets, daily range): BP systolic 123–133; BP diastolic 50–74; PULSE 81–89; RESP 18–19; TEMP 97.3–97.9; O2SAT 92–95
[2022-12-14] MEDS: metroNIDAZOLE 500MG/100ML 100 ML IV SCH ×3 (06:00→21:15)
[2022-12-14] MEDS: CEFEPIME 1GM/ 50ML 50 ML IV SCH ×2 (09:38→22:00)
[2022-12-14] MEDS: PANTOPRAZOLE 40 MG/10 ML VIAL INJ IV SCH ×2 (09:44→21:15)
[2022-12-14] MEDS: FUROSEMIDE 20 MG/2 ML VIAL IV SCH (09:44)
[2022-12-14] MEDS: SODIUM CHLOR 0.9% PF (SALINE LOCK) 10ML VIAL/SYR IV SCH ×2 (09:45→22:00)
[2022-12-14] MEDS: ENOXAPARIN SOD 40 MG/0.4 ML SYRINGE SC SCH (09:45)
[2022-12-14] MEDS: ONDANSETRON HCL 4 MG/2 ML VIAL IV PRN ×2 (10:41→21:15)
[2022-12-14] MEDS: ACETAMINOPHEN 325 MG TAB PO PRN ×2 (13:29→23:44)
[2022-12-15] MEDS: MORPHINE SULFATE INJ 2 MG/ml SYRG IV PRN (01:59)
[2022-12-15] MEDS: metroNIDAZOLE 500MG/100ML 100 ML IV SCH ×3 (04:25→22:03)
[2022-12-15 04:48] VITALS: BP 133/85; PULSE 68; RESP 18; TEMP 98.4; O2SAT 95
[2022-12-15 07:23] LABS: Basophils # (auto) 0.1 10 ^3/uL (0-0.2); Basophils % (auto) 2.3 % (0.0-2.0); Eosinophils # (auto) 0.4 10 ^3/uL (0-0.8); Eosinophils % (auto) 8.4 % (0.0-7.0); Hematocrit 26.6 % (36.0-46.0); Hemoglobin 8.8 g/dL (12.2-16.2); Lymphocytes # (auto) 0.9 10 ^3/uL (0.4-5.4); Lymphocytes % (auto) 17.7 % (10.0-50.0); Mean Corpuscular Hemoglobin 28.5 pg (28.0-32.0); Mean Corpuscular Hgb Conc. 32.9 g/dL (32.0-36.0); Mean Corpuscular Volume 86.6 fL (80.0-100.0); Monocytes # (auto) 0.8 10 ^3/uL (0-1.3); Monocytes % (auto) 15.8 % (0.0-12.0); Neutrophils # (auto) 2.9 10 ^3/uL (1.6-8.6); Neutrophils % (auto) 55.8 % (37.0-80.0); Nucleated Red Blood Cells % 0.1 %; Red Blood Cells 3.08 10^6/uL (4.0-5.20); White Blood Cell 5.2 10^3/uL (4.4-10.8)
[2022-12-15 07:30] LABS: Red Cell Distribution Width 20.3 % (11.8-14.3)
[2022-12-15 08:00] VITALS: BP 134/87; PULSE 80; RESP 18; RESP 19; TEMP 97.6; O2SAT 94
[2022-12-15 08:16] LABS: Albumin 2.2 g/dL (3.2-4.8); Alkaline Phosphatase 88 U/L (46-116); Anion Gap 8 (5-15); Aspartate Aminotransferase 18 U/L (13-40); BUN/Creatinine Ratio 20.3 (10.0-20.0); Bilirubin, Total 0.4 mg/dL (0.2-1.0); Blood Urea Nitrogen 15 mg/dL (9-23); Carbon Dioxide 27 mmol/L (20-30); Chloride 108 mmol/L (98-107); Glucose 74 mg/dL (74-106); Potassium 3.5 mmol/L (3.5-5.1); Sodium 143 mmol/L (136-145); Total Protein 4.8 g/dL (5.7-8.2)
[2022-12-15 08:19] LABS: Calcium 7.9 mg/dL (8.5-10.1)
[2022-12-15 08:36] LABS: Alanine Aminotransferase 9 U/L (7-40)
[2022-12-15 08:54] VITALS: BP 134/87; PULSE 80; RESP 18; TEMP 97.5; O2SAT 94
[2022-12-15 09:32] LABS: Magnesium 1.9 mg/dL (1.6-2.6)
[2022-12-15] MEDS: CEFEPIME 1GM/ 50ML 50 ML IV SCH ×2 (09:49→22:00)
[2022-12-15] MEDS: PANTOPRAZOLE 40 MG/10 ML VIAL INJ IV SCH ×2 (09:50→22:00)
[2022-12-15] MEDS: SODIUM CHLOR 0.9% PF (SALINE LOCK) 10ML VIAL/SYR IV SCH ×2 (09:50→22:00)
[2022-12-15] MEDS: ENOXAPARIN SOD 40 MG/0.4 ML SYRINGE SC SCH (09:50)
[2022-12-15] MEDS: FUROSEMIDE 20 MG/2 ML VIAL IV SCH (09:51)
[2022-12-15] MEDS: ACETAMINOPHEN 325 MG TAB PO PRN (10:03)
[2022-12-15] MEDS: METOCLOPRAMIDE HCL 5MG/ml INJ 2ml VIAL IV PRN (10:04)
[2022-12-15 10:30] LABS: Anisocytosis Slight; Platelet Estimate Adequate
[2022-12-15 13:00] VITALS: BP 143/82; PULSE 81; RESP 18; TEMP 97; O2SAT 96
[2022-12-15] MEDS ORDERED: MULT-119 PO (14:34)
[2022-12-15] MEDS ORDERED: ONDA-188 PO (14:34)
[2022-12-15] MEDS ORDERED: SACC1CAP3 PO (14:34)
[2022-12-15] MEDS ORDERED: METR375C PO (14:34)
[2022-12-15] MEDS ORDERED: POTASSIUM CHL 20 Meq TABLET PO ONE (14:45)
[2022-12-15 17:00] VITALS: BP 144/81; PULSE 84; RESP 20; TEMP 97.5; O2SAT 94
[2022-12-15 20:00] VITALS: BP 134/87; PULSE 80; PULSE 82; RESP 18; RESP 19; TEMP 97.6; O2SAT 94
[2022-12-15] MEDS ORDERED: MELATONIN 5 MG TAB PO ONE (23:00)
[2022-12-16 05:00] VITALS: BP 125/73; PULSE 87; RESP 16; TEMP 97.9; O2SAT 92
[2022-12-16] MEDS: metroNIDAZOLE 500MG/100ML 100 ML IV SCH ×2 (05:59→14:00)
[2022-12-16 08:00] VITALS: BP 143/66; PULSE 82; RESP 18; TEMP 97.5; O2SAT 95
[2022-12-16] MEDS: PANTOPRAZOLE 40 MG/10 ML VIAL INJ IV SCH (09:33)
[2022-12-16] MEDS: CEFEPIME 1GM/ 50ML 50 ML IV SCH (09:35)
[2022-12-16] MEDS: ENOXAPARIN SOD 40 MG/0.4 ML SYRINGE SC SCH (09:35)
[2022-12-16] MEDS: SODIUM CHLOR 0.9% PF (SALINE LOCK) 10ML VIAL/SYR IV SCH (09:36)
[2022-12-16] MEDS: FUROSEMIDE 20 MG/2 ML VIAL IV SCH (09:43)
[2022-12-16 16:25] VITALS: BP 143/66; PULSE 79; RESP 20; TEMP 97.4; O2SAT 94
[2022-12-16 17:35] VITALS: BP 134/68; PULSE 85; RESP 21; TEMP 97.8; O2SAT 94
== END 2022-12-16 17:30 | disposition home or self-care (01) | DRG 391 ==
LOC: ER 10:58 → TELE 15:09 → TELE-WESTW 18:30 → WEST WING 12-07 15:18
PROVIDERS: ADMIT Nurse Practitioner Family; ATTEND Internal Medicine
PROC: 05HC33Z Insertion of Infusion Device into Left Basilic Vein, Percutaneous Approach (ICD-10-PCS; principal; 2022-12-03)
PROC: B54NZZA Ultrasonography of Left Upper Extremity Veins, Guidance (ICD-10-PCS; 2022-12-03)
DX: K57.20 Diverticulitis of large intestine with perforation and abscess without bleeding (principal); J96.01 Acute respiratory failure with hypoxia; C64.9 Malignant neoplasm of unspecified kidney, except renal pelvis; J90 Pleural effusion, not elsewhere classified; Z68.42 Body mass index [BMI] 45.0-49.9, adult; N30.90 Cystitis, unspecified without hematuria; E87.70 Fluid overload, unspecified; I10 Essential (primary) hypertension; R60.0 Localized edema; R53.81 Other malaise; E66.01 Morbid (severe) obesity due to excess calories; R79.89 Other specified abnormal findings of blood chemistry; B95.62 Methicillin resistant Staphylococcus aureus infection as the cause of diseases classified elsewhere; E03.9 Hypothyroidism, unspecified; D64.9 Anemia, unspecified; E78.5 Hyperlipidemia, unspecified; R74.8 Abnormal levels of other serum enzymes; Z82.49 Family history of ischemic heart disease and other diseases of the circulatory system; Z85.528 Personal history of other malignant neoplasm of kidney; Z87.891 Personal history of nicotine dependence; Z90.5 Acquired absence of kidney; Z90.710 Acquired absence of both cervix and uterus; Z91.048 Other nonmedicinal substance allergy status; Z90.49 Acquired absence of other specified parts of digestive tract; Z71.3 Dietary counseling and surveillance
CPT/HCPCS: 36415; 36569; 71045; 71260; 73562; 74177; 74178; 80053; 80069; 81001; 82962; 83735; 83880; 84100; 84443; 84478; 84484; 85025; 85379; 85610; 85730; 87081; 87493; 93970; 97110; 97116; 97163; 97530; C9113; G0378; J0696; J2405; J3480; J3490; J7060; J7131

== ENCOUNTER → 2023-01-05 | Outpatient (CLI) | payer OTHER ==
[~2023-01-05] MED LIST changes: -AML5T PO; +ASCO500T11 PO; -ATOR20TA50 PO; -CEPH500C PO; -CLOP75TA70 PO; -CYAN500T3 PO; -ERGO1CAP23 PO; -FAMO20TA10 PO; -FURO1TAB31 PO; -LEV100T PO; -LEVO100T69 PO; -METO25TA36 PO; +METR375C PO; +MULT-119 PO; +ONDA-188 PO; +SACC1CAP3 PO; -SUCR1TAB PO; -TRAM50TA2 PO
[2023-01-05 12:19] LABS: Anion Gap 4 (5-15); Carbon Dioxide 32 mmol/L (20-30); Chloride 106 mmol/L (98-107); Potassium 3.9 mmol/L (3.5-5.1); Sodium 142 mmol/L (136-145)
[2023-01-05 12:20] LABS: Calcium 8.1 mg/dL (8.5-10.1)
[2023-01-05 12:25] LABS: Blood Urea Nitrogen 5 mg/dL (9-23); Glucose 93 mg/dL (74-106)
[2023-01-05 12:45] LABS: Urine Bacteria FEW /hpf (None Seen); Urine Blood Negative /uL (Negative); Urine Clarity CLOUDY (Clear); Urine Color Yellow (Yellow); Urine Mucus FEW (None Seen); Urine Protein, UAD 2+ (Negative); Urine Specific Gravity 1.036 (1.001-1.035); Urine WBC 75 /hpf (0 - 5); Urine pH 5.5 (5.0-8.0)
== END | disposition home or self-care (01) ==
LOC: LAB 11:24
PROVIDERS: ATTEND Internal Medicine
DX: K57.20 Diverticulitis of large intestine with perforation and abscess without bleeding (principal); N39.0 Urinary tract infection, site not specified
CPT/HCPCS: 36415; 80048; 81001

== ENCOUNTER → 2023-02-06 | Outpatient (CLI) | payer OTHER ==
[2023-02-06 11:45] LABS: Basophils # (auto) 0.1 10 ^3/uL (0-0.2); Basophils % (auto) 2.4 % (0.0-2.0); Eosinophils # (auto) 0.3 10 ^3/uL (0-0.8); Eosinophils % (auto) 6.1 % (0.0-7.0); Hematocrit 38.1 % (36.0-46.0); Hemoglobin 12.4 g/dL (12.2-16.2); Lymphocytes # (auto) 0.9 10 ^3/uL (0.4-5.4); Lymphocytes % (auto) 20.9 % (10.0-50.0); Mean Corpuscular Hemoglobin 27.8 pg (28.0-32.0); Mean Corpuscular Hgb Conc. 32.6 g/dL (32.0-36.0); Mean Corpuscular Volume 85.1 fL (80.0-100.0); Monocytes # (auto) 0.5 10 ^3/uL (0-1.3); Neutrophils # (auto) 2.5 10 ^3/uL (1.6-8.6); Neutrophils % (auto) 58.6 % (37.0-80.0); Nucleated Red Blood Cells % 0.1 %; Red Blood Cells 4.47 10^6/uL (4.0-5.20); White Blood Cell 4.2 10^3/uL (4.4-10.8)
[2023-02-06 12:05] LABS: Red Cell Distribution Width 21.6 % (11.8-14.3)
[2023-02-06 12:33] LABS: Albumin 2.8 g/dL (3.2-4.8); Alkaline Phosphatase 110 U/L (46-116); Anion Gap 7 (5-15); Aspartate Aminotransferase 18 U/L (13-40); Calcium 8.5 mg/dL (8.5-10.1); Carbon Dioxide 28 mmol/L (20-30); Chloride 105 mmol/L (98-107); Glucose 89 mg/dL (74-106); Sodium 140 mmol/L (136-145)
[2023-02-06 12:34] LABS: Bilirubin, Total 0.5 mg/dL (0.2-1.0); Total Protein 5.8 g/dL (5.7-8.2)
[2023-02-06 12:52] LABS: Alanine Aminotransferase < 9 U/L (7-40); BUN/Creatinine Ratio 5.6 (10.0-20.0); Blood Urea Nitrogen < 5 mg/dL (9-23)
== END | disposition home or self-care (01) ==
LOC: LAB 11:27
PROVIDERS: ATTEND Internal Medicine
DX: K57.80 Diverticulitis of intestine, part unspecified, with perforation and abscess without bleeding (principal)
CPT/HCPCS: 36415; 80053; 85025

== ENCOUNTER → 2023-04-12 | Outpatient (CLI) | payer OTHER | END | disposition home or self-care (01) | LOC: XYW 09:26 | PROVIDERS: ATTEND Internal Medicine | DX: R42 Dizziness and giddiness (principal); R29.6 Repeated falls | CPT/HCPCS: 93886 ==

== ENCOUNTER → 2023-04-18 | Outpatient (CLI) | payer OTHER | END | disposition home or self-care (01) | LOC: XYW 10:26 | PROVIDERS: ATTEND Internal Medicine | DX: R42 Dizziness and giddiness (principal); I51.89 Other ill-defined heart diseases; R29.6 Repeated falls | CPT/HCPCS: 93306 ==

== ENCOUNTER → 2023-05-12 | Outpatient (CLI) | payer OTHER ==
[2023-05-12 11:57] LABS: Basophils # (auto) 0.1 10 ^3/uL (0-0.2); Basophils % (auto) 1.1 % (0.0-2.0); Eosinophils # (auto) 0.2 10 ^3/uL (0-0.8); Eosinophils % (auto) 3.3 % (0.0-7.0); Hematocrit 39.8 % (36.0-46.0); Hemoglobin 13.3 g/dL (12.2-16.2); Lymphocytes # (auto) 1.1 10 ^3/uL (0.4-5.4); Lymphocytes % (auto) 17.4 % (10.0-50.0); Mean Corpuscular Hemoglobin 29.8 pg (28.0-32.0); Mean Corpuscular Hgb Conc. 33.5 g/dL (32.0-36.0); Monocytes # (auto) 0.6 10 ^3/uL (0-1.3); Monocytes % (auto) 9.1 % (0.0-12.0); Neutrophils # (auto) 4.3 10 ^3/uL (1.6-8.6); Neutrophils % (auto) 69.1 % (37.0-80.0); Red Blood Cells 4.47 10^6/uL (4.0-5.20); Red Cell Distribution Width 14.8 % (11.8-14.3); White Blood Cell 6.3 10^3/uL (4.4-10.8)
[2023-05-12 12:00] LABS: Urine Amorphous Crystal FEW /hpf (None Seen); Urine Bacteria NONE SEEN /hpf (None Seen); Urine Blood Negative /uL (Negative); Urine Clarity HAZY (Clear); Urine Color Yellow (Yellow); Urine Protein, UAD TRACE (Negative); Urine Urobilinogen Normal (Negative); Urine WBC 1 /hpf (0 - 5); Urine pH 8.5 (5.0-8.0)
[2023-05-12 12:53] LABS: Albumin 3.4 g/dL (3.2-4.8); Alkaline Phosphatase 91 U/L (46-116); Anion Gap 7 (5-15); Aspartate Aminotransferase 23 U/L (13-40); BUN/Creatinine Ratio 5.4 (10.0-20.0); Blood Urea Nitrogen 5 mg/dL (9-23); Calcium 8.9 mg/dL (8.7-10.4); Carbon Dioxide 27 mmol/L (20-30); Chloride 103 mmol/L (98-107); Glucose 98 mg/dL (74-106); Potassium 3.9 mmol/L (3.5-5.1); Sodium 137 mmol/L (136-145)
[2023-05-12 12:54] LABS: Bilirubin, Total 0.5 mg/dL (0.2-1.0); Total Protein 6.6 g/dL (5.7-8.2)
[2023-05-12 12:57] LABS: Alanine Aminotransferase < 9 U/L (7-40)
== END | disposition home or self-care (01) ==
LOC: LAB 11:22
PROVIDERS: ATTEND Internal Medicine
DX: I10 Essential (primary) hypertension (principal); E78.5 Hyperlipidemia, unspecified; D64.9 Anemia, unspecified; E66.9 Obesity, unspecified
CPT/HCPCS: 36415; 80053; 81001; 82270; 84443; 85025

== ENCOUNTER → 2023-06-21 | Outpatient (CLI) | payer OTHER ==
[~2023-06-21] MED LIST changes: +MIDAZOLAM HCL 2MG/2ML 2ml VIAL (1mg/ml) IV ONE; +fentaNYL CITRATE 100 MCG/2 ML VL IV ONE
[2023-06-21 12:36] LABS: Basophils # (auto) 0.1 10 ^3/uL (0-0.2); Basophils % (auto) 0.9 % (0.0-2.0); Eosinophils # (auto) 0.2 10 ^3/uL (0-0.8); Eosinophils % (auto) 2.6 % (0.0-7.0); Hematocrit 35.5 % (36.0-46.0); Hemoglobin 12.2 g/dL (12.2-16.2); Lymphocytes # (auto) 1.1 10 ^3/uL (0.4-5.4); Lymphocytes % (auto) 15.4 % (10.0-50.0); Mean Corpuscular Hemoglobin 30.3 pg (28.0-32.0); Mean Corpuscular Hgb Conc. 34.2 g/dL (32.0-36.0); Mean Corpuscular Volume 88.6 fL (80.0-100.0); Monocytes # (auto) 0.8 10 ^3/uL (0-1.3); Monocytes % (auto) 11.6 % (0.0-12.0); Neutrophils # (auto) 4.8 10 ^3/uL (1.6-8.6); Neutrophils % (auto) 69.5 % (37.0-80.0); Red Blood Cells 4.01 10^6/uL (4.0-5.20); Red Cell Distribution Width 14.6 % (11.8-14.3)
[2023-06-21 12:47] LABS: INR 1.04 (0.9-1.15); Partial Thromboplastin Time 32.4 SEC (24.5-34.5); Prothrombin Time 10.9 sec (9.3-11.8)
== END | disposition home or self-care (01) ==
LOC: LAB 12:08
PROVIDERS: ATTEND Internal Medicine
DX: D49.512 Neoplasm of unspecified behavior of left kidney (principal)
CPT/HCPCS: 36415; 85025; 85610; 85730

== ENCOUNTER → 2023-06-22 | Outpatient (CLI) | payer OTHER ==
[~2023-06-22] MED LIST changes: +GELATIN 1 SPONGE SIZE 50 TOP ONE; +IOHEXOL 300 MG/ML 100ML BOTTLE IJ ONE; +LIDOCAINE 2%HCL (LOCAL ANESTH.) INJ 10ml MDV ONE; -MIDAZOLAM HCL 2MG/2ML 2ml VIAL (1mg/ml) IV ONE; +MIDAZOLAM HCL 2MG/2ML 2ml VIAL (1mg/ml) ONE; -fentaNYL CITRATE 100 MCG/2 ML VL IV ONE; +fentaNYL CITRATE 100 MCG/2 ML VL ONE; +hydrALAZINE HCL 20 MG/ML VL ONE
== END | disposition home or self-care (01) ==
LOC: CT 08:54
PROVIDERS: ATTEND Internal Medicine
DX: C64.2 Malignant neoplasm of left kidney, except renal pelvis (principal); Z87.891 Personal history of nicotine dependence; Z90.710 Acquired absence of both cervix and uterus; Z80.8 Family history of malignant neoplasm of other organs or systems; Z82.49 Family history of ischemic heart disease and other diseases of the circulatory system; Z91.048 Other nonmedicinal substance allergy status; Z79.899 Other long term (current) drug therapy; Z98.890 Other specified postprocedural states
CPT/HCPCS: 49180; 74170; 77012; 88305; 88342; J0360; J2001; J2250; J3010; Q9967; 10005; 99152; 99153

== ENCOUNTER → 2023-07-03 | Outpatient (CLI) | payer OTHER ==
[~2023-07-03] MED LIST changes: -GELATIN 1 SPONGE SIZE 50 TOP ONE; -IOHEXOL 300 MG/ML 100ML BOTTLE IJ ONE; -LIDOCAINE 2%HCL (LOCAL ANESTH.) INJ 10ml MDV ONE; -MIDAZOLAM HCL 2MG/2ML 2ml VIAL (1mg/ml) ONE; -fentaNYL CITRATE 100 MCG/2 ML VL ONE; -hydrALAZINE HCL 20 MG/ML VL ONE
[2023-07-03 12:58] LABS: Basophils # (auto) 0.1 10 ^3/uL (0-0.2); Eosinophils # (auto) 0.1 10 ^3/uL (0-0.8); Eosinophils % (auto) 1.8 % (0.0-7.0); Hematocrit 35.4 % (36.0-46.0); Hemoglobin 11.9 g/dL (12.2-16.2); Lymphocytes % (auto) 13.1 % (10.0-50.0); Mean Corpuscular Hemoglobin 29.6 pg (28.0-32.0); Mean Corpuscular Hgb Conc. 33.5 g/dL (32.0-36.0); Mean Corpuscular Volume 88.2 fL (80.0-100.0); Monocytes # (auto) 0.8 10 ^3/uL (0-1.3); Monocytes % (auto) 10.3 % (0.0-12.0); Neutrophils # (auto) 5.8 10 ^3/uL (1.6-8.6); Neutrophils % (auto) 73.8 % (37.0-80.0); Nucleated Red Blood Cells % 0.2 %; Red Blood Cells 4.01 10^6/uL (4.0-5.20); Red Cell Distribution Width 14.4 % (11.8-14.3); White Blood Cell 7.9 10^3/uL (4.4-10.8)
[2023-07-03 13:40] LABS: Thyroid Stimulating Hormone 7.72 uIU/mL (0.55-4.78)
[2023-07-03 13:46] LABS: Alkaline Phosphatase 95 U/L (46-116); Amylase 23 U/L (30-118); Anion Gap 8 (5-15); Aspartate Aminotransferase 18 U/L (13-40); BUN/Creatinine Ratio 8.2 (10.0-20.0); Blood Urea Nitrogen 8 mg/dL (9-23); Calcium 9.7 mg/dL (8.7-10.4); Carbon Dioxide 29 mmol/L (20-30); Chloride 101 mmol/L (98-107); Glucose 99 mg/dL (74-106); Lipase 32 U/L (12-53); Potassium 3.8 mmol/L (3.5-5.1); Sodium 138 mmol/L (136-145)
[2023-07-03 13:47] LABS: Bilirubin, Total 0.7 mg/dL (0.2-1.0); Total Protein 7.1 g/dL (5.7-8.2)
[2023-07-03 13:48] LABS: Alanine Aminotransferase < 9 U/L (7-40)
== END | disposition home or self-care (01) ==
LOC: LAB 12:33
PROVIDERS: ATTEND Student in an Organized Health Care Education/Training Program
DX: C65.2 Malignant neoplasm of left renal pelvis (principal); K57.92 Diverticulitis of intestine, part unspecified, without perforation or abscess without bleeding; E44.1 Mild protein-calorie malnutrition
CPT/HCPCS: 36415; 80053; 82150; 83615; 83690; 84436; 84443; 84480; 85025

== ENCOUNTER → 2023-07-18 | Outpatient (CLI) | payer OTHER ==
[2023-07-18 12:14] LABS: Basophils # (auto) 0.1 10 ^3/uL (0-0.2); Eosinophils # (auto) 0.2 10 ^3/uL (0-0.8); Eosinophils % (auto) 1.9 % (0.0-7.0); Hematocrit 33.4 % (36.0-46.0); Hemoglobin 11.1 g/dL (12.2-16.2); Lymphocytes % (auto) 12.5 % (10.0-50.0); Mean Corpuscular Hgb Conc. 33.3 g/dL (32.0-36.0); Monocytes # (auto) 0.7 10 ^3/uL (0-1.3); Monocytes % (auto) 8.7 % (0.0-12.0); Neutrophils % (auto) 75.9 % (37.0-80.0); Red Blood Cells 3.84 10^6/uL (4.0-5.20); Red Cell Distribution Width 14.3 % (11.8-14.3); White Blood Cell 7.9 10^3/uL (4.4-10.8)
[2023-07-18 13:30] LABS: Albumin 3.7 g/dL (3.2-4.8); Alkaline Phosphatase 103 U/L (46-116); Anion Gap 5 (5-15); Aspartate Aminotransferase 24 U/L (13-40); BUN/Creatinine Ratio 10.8 (10.0-20.0); Bilirubin, Total 0.3 mg/dL (0.2-1.0); Blood Urea Nitrogen 8 mg/dL (9-23); Calcium 9.3 mg/dL (8.5-10.1); Carbon Dioxide 32 mmol/L (20-30); Chloride 100 mmol/L (98-107); Glucose 98 mg/dL (74-106); Potassium 3.7 mmol/L (3.5-5.1); Sodium 137 mmol/L (136-145)
[2023-07-18 13:31] LABS: Alanine Aminotransferase < 9 U/L (7-40); Total Protein 6.7 g/dL (5.7-8.2)
[2023-07-18 13:36] LABS: Thyroid Stimulating Hormone 5.18 uIU/mL (0.358-3.74)
== END | disposition home or self-care (01) ==
LOC: LAB 11:31
PROVIDERS: ATTEND Student in an Organized Health Care Education/Training Program
DX: C64.2 Malignant neoplasm of left kidney, except renal pelvis (principal); E44.1 Mild protein-calorie malnutrition; K57.92 Diverticulitis of intestine, part unspecified, without perforation or abscess without bleeding
CPT/HCPCS: 36415; 80053; 83615; 84439; 84443; 85025

== ENCOUNTER 2023-08-05 14:54 | Emergency (ER) | payer OTHER ==
[~2023-08-05] VITALS: Ht 154.9 cm; Wt 164.0 kg
[2023-08-05] MEDS: METOCLOPRAMIDE HCL 5MG/ml INJ 2ml VIAL IV ONE (17:10)
[2023-08-05 17:13] VITALS: PULSE 105; RESP 20; O2SAT 94
[2023-08-05] MEDS ORDERED: METO-281 PO (18:17)
[2023-08-05] MEDS: FOLIC ACID 1 MG, MAGNESIUM SULF SDV 50% 8 MEQ, MULTIPLE VITAMIN 10 ML, THIAMINE INJ 100... INJ ONE (18:17)
[2023-08-05] MEDS ORDERED: ACE3T PO (18:17)
[2023-08-05 19:54] VITALS: BP 124/76; PULSE 102; RESP 16; TEMP 97.3; O2SAT 95
== END 2023-08-05 19:55 | disposition home or self-care (01) ==
LOC: ER 14:54
DX: C64.9 Malignant neoplasm of unspecified kidney, except renal pelvis (principal); E03.9 Hypothyroidism, unspecified; R11.2 Nausea with vomiting, unspecified; I10 Essential (primary) hypertension; F12.90 Cannabis use, unspecified, uncomplicated; Z87.891 Personal history of nicotine dependence; Z90.49 Acquired absence of other specified parts of digestive tract; Z79.899 Other long term (current) drug therapy; Z90.89 Acquired absence of other organs; Z90.710 Acquired absence of both cervix and uterus
CPT/HCPCS: 96365; 96366; 96375; 99284; J2765; J3411; J3475; J7030